=== PATIENT | female | born 1965 | race Caucasian/White ===

== ENCOUNTER 2020-03-12 10:53 | Day surgery (SDC) | payer OTHER ==
[2020-03-12] MEDS ORDERED: Depo-Medrol 40 MG/ML IM ONE (10:54)
[2020-03-12] MEDS ORDERED: LIDOCAINE HCL 2% 100 MG/5 ML IJ ONE (10:54)
[2020-03-12] MEDS ORDERED: DIPRIVAN 200 MG/20 ML IV ONE ×2 (12:54→13:12)
[2020-03-12] MEDS ORDERED: Ketamine HCl 50 MG/ML ONE ×2 (12:54→13:12)
[2020-03-12] MEDS ORDERED: Decadron 4 MG INJ ONE (13:15)
[2020-03-12] MEDS ORDERED: Zofran 4 MG/2 ML VIAL ONE (13:15)
--- NOTE | 2020-03-12 15:08 | XRAY ---
Indication: Left L4-S1 MBB. Intraoperative fluoroscopy was provided for 14 seconds. Single digital spot image submitted for interpretation demonstrates posterior needle tips projecting over the expected course of the left L4-S1 nerve root. Correlate with intraoperative findings/report.
--- NOTE | 2020-03-12 15:13 | XRAY ---
14 seconds fluoroscopy time in surgery for left L4-S1 MBB.
[2020-03-12] MEDS ORDERED: Lactated Ringers 1,000 ML IV ONE (15:30)
== END 2020-03-12 13:38 | disposition home or self-care (01) ==
LOC: SDC-PAIN 10:53
PROVIDERS: ATTEND Psychiatry & Neurology Pain Medicine
DX: M47.816 Spondylosis without myelopathy or radiculopathy, lumbar region (principal); I10 Essential (primary) hypertension; E78.5 Hyperlipidemia, unspecified; M79.7 Fibromyalgia; F41.8 Other specified anxiety disorders; Z79.899 Other long term (current) drug therapy
CPT/HCPCS: 64493; 64494; 72020; 77002; J1030; J1100; J2405; J2704

== ENCOUNTER 2020-04-02 10:02 | Day surgery (SDC) | payer OTHER ==
[~2020-04-02 10:02] MED LIST: DIPRIVAN 200 MG/20 ML IV ONE; Ketamine HCl 50 MG/ML ONE
[2020-04-02] MEDS ORDERED: Depo-Medrol 40 MG/ML IM ONE (10:03)
[2020-04-02] MEDS ORDERED: BUPIVACAINE 0.5% VIAL IJ ONE (10:03)
[2020-04-02] MEDS ORDERED: Lactated Ringers 1,000 ML IV ONE (13:53)
--- NOTE | 2020-04-03 14:55 | XRAY ---
18 seconds fluoroscopy time in surgery for bilateral L4-S1 MBB.
--- NOTE | 2020-04-05 22:44 | XRAY ---
Indication: Bilateral L4-S1 MBB. Intraoperative fluoroscopy was provided for 18 seconds. A single digital spot image submitted for interpretation demonstrates posterior spinal needle tips projected over the expected course of the left and right L4-S1 nerve roots. Correlate with intraoperative findings/report.
== END 2020-04-02 12:20 | disposition home or self-care (01) ==
LOC: SDC-PAIN 10:02
PROVIDERS: ATTEND Psychiatry & Neurology Pain Medicine
DX: M47.816 Spondylosis without myelopathy or radiculopathy, lumbar region (principal); M79.7 Fibromyalgia; E78.5 Hyperlipidemia, unspecified; F41.8 Other specified anxiety disorders; Z79.899 Other long term (current) drug therapy
CPT/HCPCS: 64493; 64494; 72020; 77002; J1030; J2704

== ENCOUNTER 2020-04-30 09:06 | Day surgery (SDC) | payer OTHER ==
[2020-04-30] MEDS ORDERED: Depo-Medrol 40 MG/ML IM ONE (09:07)
[2020-04-30] MEDS ORDERED: BUPIVACAINE 0.5% VIAL IJ ONE (09:07)
[2020-04-30] MEDS ORDERED: Xylocaine 1% Vial 30 ML PF IJ ONE (09:07)
--- NOTE | 2020-04-30 12:10 | XRAY ---
Indication: Left L4-S1 RFA. Intraoperative fluoroscopy was provided for 30 seconds. 3 digital spot images submitted for interpretation demonstrates posterior needle tips projecting over the expected left L4-S1 nerve roots. Correlate with intraoperative findings/report.
[2020-04-30] MEDS ORDERED: Lactated Ringers 1,000 ML IV ONE (13:48)
--- NOTE | 2020-04-30 16:55 | XRAY ---
30 seconds of fluoroscopy was used in surgery for a left L4-L5, L5-S1 RFA.
== END 2020-04-30 11:00 | disposition home or self-care (01) ==
LOC: SDC-PAIN 09:06
PROVIDERS: ATTEND Psychiatry & Neurology Pain Medicine
DX: M47.816 Spondylosis without myelopathy or radiculopathy, lumbar region (principal); I10 Essential (primary) hypertension; E78.5 Hyperlipidemia, unspecified; M79.7 Fibromyalgia; F41.8 Other specified anxiety disorders; Z79.899 Other long term (current) drug therapy
CPT/HCPCS: 64635; 72100; 77002; J1030; J2001; J2704

== ENCOUNTER 2020-05-14 10:27 | Day surgery (SDC) | payer OTHER ==
[2020-05-14] MEDS ORDERED: Xylocaine 1% Vial 30 ML PF IJ ONE (10:28)
[2020-05-14] MEDS ORDERED: BUPIVACAINE 0.5% VIAL IJ ONE (10:28)
[2020-05-14] MEDS ORDERED: Depo-Medrol 40 MG/ML IM ONE (10:28)
[2020-05-14] MEDS ORDERED: Ketamine HCl 50 MG/ML ONE ×2 (11:13→11:48)
[2020-05-14] MEDS ORDERED: DIPRIVAN 200 MG/20 ML IV ONE ×2 (11:13→11:48)
--- NOTE | 2020-05-14 14:02 | XRAY ---
Indication: Right L4-S1 RFA. Intraoperative fluoroscopy was provided for 27 seconds. 3 digital spot images submitted for interpretation demonstrates posterior needle tips projecting over the expected right L4-S1 nerve roots. Correlate with intraoperative findings/report.
--- NOTE | 2020-05-14 14:17 | XRAY ---
27 seconds fluoroscopy time in surgery for right L4-S1 RFA.
[2020-05-14] MEDS ORDERED: Lactated Ringers 1,000 ML IV ONE (16:47)
== END 2020-05-14 12:30 | disposition home or self-care (01) ==
LOC: SDC-PAIN 10:27
PROVIDERS: ATTEND Psychiatry & Neurology Pain Medicine
DX: M47.816 Spondylosis without myelopathy or radiculopathy, lumbar region (principal); E78.00 Pure hypercholesterolemia, unspecified; I10 Essential (primary) hypertension; M79.7 Fibromyalgia; Z79.899 Other long term (current) drug therapy
CPT/HCPCS: 64635; 64636; 72100; 77002; J1030; J2001; J2704

== ENCOUNTER 2020-07-31 11:10 | Emergency (ER) | payer BC, OTHER, SELFPAY ==
[2020-07-31 11:33] VITALS: O2SAT 98
[2020-07-31] MEDS ORDERED: Zofran 4 MG/2 ML VIAL IV ONE (11:34)
[2020-07-31] MEDS ORDERED: TORAdol 30 mg Injection IV ONE (11:34)
[2020-07-31] MEDS ORDERED: Sodium Chloride 0.9% 1000 ML 1,000 ML IV STA (11:34)
[2020-07-31] MEDS ORDERED: Zofran 4 MG/2 ML VIAL ONE (11:36)
[2020-07-31] MEDS ORDERED: Sodium Chloride 0.9% 1000 ML 1,000 ML ONE (11:36)
[2020-07-31] MEDS ORDERED: TORAdol 30 mg Injection ONE (11:36)
--- NOTE | 2020-07-31 11:38 | ERPHSYRPT ---
- History of Present Illness Time Seen by Provider: 07/31/20 11:35 Historian: patient Exam Limitations: no limitations Patient Subjective Stated Complaint: PT states "about 9 am this morning my back started to hurt on the left siide and it hurt when I went to the bathroom." Triage Nursing Assessment: Pt presented alert and oriented X 3, skin pwd. Pt ambulates with an upright stiff gait, able to speak in clear full sentences. pt in no apparent respiratory distress. Physician History: This is a 54-year-old obese white female with chronic back pain issues and sees a pain specialist (Dr. Jackson) for chronic pain. She also has a history of anxiety issues, depression and fibromyalgia. This morning, she had a sudden onset of left flank pain that radiated into the left groin. She has had history of ureteral calculi in the past. Symptoms are similar this morning. She has associated nausea but no vomiting. She has no chest pain. She denies shortness of breath. She has had no diarrhea. She has had no fevers or chills. Patient has not fallen and has not suffered any back trauma. Timing/Duration: today Activities at Onset: none Quality: sharpness, stabbing Abdominal Pain Onset Location: flank (Left) Pain Radiation: groin (Left) Severity of Pain-Max: moderate Severity of Pain-Current: moderate Modifying Factors: Improves With: nothing Associated Symptoms: nausea, No chest pain, No diarrhea, No fever/chills, No shortness of breath, No vomiting Previous symptoms: same symptoms as today Allergies/Adverse Reactions: No Known Drug Allergies Allergy (Verified 07/31/20 11:27) Home Medications: ARIPiprazole [Abilify Mycite] 2 mg PO DAILY 07/31/20 [History] Atorvastatin Calcium [Lipitor] 20 mg PO DAILY 07/31/20 [History] Baclofen 10 mg PO TID 07/31/20 [History] Fenofibrate 160 mg PO DAILY 07/31/20 [History] Gabapentin 600 mg PO QID 07/31/20 [History] Hydrocodone/Acetaminophen [Hydrocodone-Acetamin 7.5-325] 1 each PO TID PRN 07/31/20 [History] Lisinopril 20 mg [Zestril 20 MG] 20 mg PO DAILY 07/31/20 [History] Topiramate [Topiramate ER] 50 mg PO BID 07/31/20 [History] Hx Tetanus, Diphtheria Vaccination/Date Given: Yes Hx Influenza Vaccination/Date Given: Yes Hx Pneumococcal Vaccination/Date Given: No Immunizations Up to Date: Yes Travel Risk - International Travel Have you traveled outside of the country in past 3 weeks: No (N) If Yes, where;: N - Coronavirus Screening Are you exhibiting any of the following symptoms?: No Close contact with a COVID-19 positive Pt in past 14-21 Days: No - Review of Systems Constitutional: No Symptoms Eyes: No Symptoms Ears, Nose, & Throat: No Symptoms Respiratory: No Symptoms Cardiac: No Symptoms Abdominal/Gastrointestinal: Nausea Genitourinary Symptoms: Dysuria, Flank Pain (Left) Musculoskeletal: No Symptoms Skin: No Symptoms Neurological: No Symptoms Psychological: No Symptoms Endocrine: No Symptoms Hematologic/Lymphatic: No Symptoms Immunological/Allergic: No Symptoms All Other Systems: Reviewed and Negative - Past Medical History Pertinent Past Medical History: Yes Neurological History: Migraines ENT History: No Pertinent History Cardiac History: High Cholesterol, Hypertension Respiratory History: No Pertinent History Endocrine Medical History: No Pertinent History Musculoskeletal History: Fibromyalgia GI Medical History: No Pertinent History History: No Pertinent History Psycho-Social History: Anxiety, Depression Female Reproductive Disorders: No Pertinent History - Past Surgical History Past Surgical History: Yes Other Surgical History: hysterectomy. back. bilat knee - Social History Smoking Status: Never smoker Exposure to second hand smoke: No Drug Use: none Patient Lives Alone: No - Female History Hx Last Menstrual Period: 1995 Hx Now: No - Nursing Vital Signs Nursing Vital Signs: Initial Vital Signs Temperature 99 F 07/31/20 11:14 Pulse Rate 118 H 07/31/20 11:14 Respiratory Rate 22 07/31/20 11:14 Blood Pressure 187/108 07/31/20 11:14 O2 Sat by Pulse Oximetry 98 07/31/20 11:14 Pain Scale Pain Intensity 6 - Physical Exam General Appearance: no apparent distress, alert, anxiety, obese Eye Exam: PERRL/EOMI, eyes nml inspection Ears, Nose, Throat Exam: normal ENT inspection, moist mucous membranes Neck Exam: normal inspection, non-tender, supple, full range of motion Respiratory Exam: normal breath sounds, lungs clear, airway intact, No chest tenderness, No respiratory distress Cardiovascular Exam: tachycardia Gastrointestinal/Abdomen Exam: soft, normal bowel sounds, No tenderness, No guarding Pelvic Exam: not done Rectal Exam: not done Back Exam: normal inspection, normal range of motion, CVA tenderness (Left), No vertebral tenderness Extremity Exam: normal inspection, normal range of motion, pelvis stable Neurologic Exam: alert, oriented x 3, cooperative, 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, normal mood/affect, nml cerebellar function, nml station & gait, sensation nml Skin Exam: normal color, warm, dry Lymphatic Exam: No adenopathy SpO2 Interpretation: normal SpO2: 98 O2 Delivery: Room Air - Course Nursing assessment & vital signs reviewed: Yes Ordered Tests: Active Orders 24 hr Category Date Time Status IV Insertion STAT Care 07/31/20 11:34 Active ABDOMEN AND PELVIS W/0 CONTRAS [CT] Stat Exams 07/31/20 11:33 Completed CBC W DIFF Stat Lab 07/31/20 11:30 Received CMP Stat Lab 07/31/20 11:30 Received CULTURE,URINE Stat Lab 07/31/20 12:00 Received PROTIME WITH INR Stat Lab 07/31/20 11:30 Received UA W/RFX UR CULTURE Stat Lab 07/31/20 12:00 Completed Medication Summary Generic Name Dose Route Start Last Admin Trade Name Freq PRN Reason Stop Dose Admin Ceftriaxone Sodium/Dextrose 1 g in 50 mls @ 100 mls/hr 07/31/20 13:14 07/31/20 13:27 Rocephin 1 Gm-D5w 50 Ml Bag IV 07/31/20 13:43 100 mls/hr STAT STA 100 mls/hr Administration Discontinued Medications Generic Name Dose Route Start Last Admin Trade Name Freq PRN Reason Stop Dose Admin Hydromorphone HCl 1 mg 07/31/20 13:34 Hydromorphone 1 Mg/Ml Injection IV 07/31/20 13:35 STAT ONE Hydromorphone HCl 1 mg 07/31/20 13:34 Hydromorphone 1 Mg/Ml Injection IV 07/31/20 13:35 STAT ONE Sodium Chloride 1,000 mls @ 999 mls/hr 07/31/20 11:34 07/31/20 12:56 Sodium Chloride 0.9% 1000 Ml IV 07/31/20 12:34 Infused .Q1H1M STA Infusion Sodium Chloride Confirm 07/31/20 11:36 Sodium Chloride 0.9% 1000 Ml Administered 07/31/20 11:37 Dose 1,000 mls @ ud .ROUTE .STK-MED ONE Ceftriaxone Sodium/Dextrose Confirm 07/31/20 13:27 Rocephin 1 Gm-D5w 50 Ml Bag Administered 07/31/20 13:28 Dose 1 g in 50 mls @ ud IV .STK-MED ONE Ketorolac Tromethamine 30 mg 07/31/20 11:34 07/31/20 11:37 Toradol 30 Mg Injection IV 07/31/20 11:35 30 mg STAT ONE Administration Ketorolac Tromethamine Confirm 07/31/20 11:36 Toradol 30 Mg Injection Administered 07/31/20 11:37 Dose 30 mg .ROUTE .STK-MED ONE Ondansetron HCl 4 mg 07/31/20 11:34 07/31/20 11:37 Zofran 4 Mg/2 Ml Vial IV 07/31/20 11:35 4 mg STAT ONE Administration Ondansetron HCl Confirm 07/31/20 11:36 Zofran 4 Mg/2 Ml Vial Administered 07/31/20 11:37 Dose 4 mg .ROUTE .STK-MED ONE Lab/Rad Data: Laboratory Results 07/31/20 Range/Units 12:00 Urine Color YELLOW (YELLOW) Urine Appearance CLOUDY (CLEAR) Urine pH 5.0 (5-6) Ur Specific [place] 1.021 (1.005-1.025) Urine Protein 30 (Negative) Urine Ketones NEGATIVE (NEGATIVE) Urine Blood LARGE (0-5) Christopher/ul Urine Nitrite NEGATIVE (NEGATIVE) Urine Bilirubin NEGATIVE (NEGATIVE) Urine Urobilinogen NEGATIVE (0-1) mg/dL Ur Leukocyte Esterase TRACE (NEGATIVE) Urine RBC (Auto) >101 (0-2) /HPF U Epithel Cells (Auto) FEW (FEW) /HPF Urine Bacteria (Auto) MODERATE (NEGATIVE) /HPF Urine Mucus (Auto) SLIGHT (NEGATIVE) /HPF Urine Culture Reflexed YES (NO) Urine Glucose NEGATIVE (NEGATIVE) mg/dL - Progress Progress: improved, pain not gone completely, re-examined Progress Note: 07/31/20 12:45 Clinically, the patient states that her pain has improved but has not completely resolved. CAT scan of the abdomen pelvis without contrast shows a 6 to 7 mm left UPJ calculus producing partial obstruction. There is urinary bladder calculus present as well as bilateral renal microcalculi present. There is mild hydronephrosis and no perinephric fluid present. 07/31/20 13:36 At [address] Villalobos who is a urologist at [facility] in [facility]. He offered to accept the patient to [facility] through the emergency department if the patient wants surgical intervention today. We s poke with the patient and she does want to be transferred for intervention. At [address] Oh who is the emergency department physician today at [facility]. I reviewed the patient history, condition and CAT scan of the abdomen and pelvis results with him. He accepts the patient for transfer. Counseled pt/family regarding: lab results, diagnosis, need for follow-up, rad results - Departure Departure Disposition: Transfer Clinical Impression: Left ureteral calculus Condition: Stable Critical Care Time: No Referrals: MARCIN VALERA MD [Primary Care Provider] -
--- NOTE | 2020-07-31 12:11 | XRAY ---
Indication: Left flank pain. History of stones. Multiple contiguous axial images obtained through the abdomen and pelvis without contrast using renal stone protocol. Comparison: None Lung bases demonstrates bilateral dependent atelectasis and tiny left lower lobe calcified granuloma. Heart is borderline enlarged. Small hiatal hernia. There is a 6-7 mm left UPJ calculus producing partial obstruction with mild hydronephrosis but no perinephric fluid. Additional multiple bilateral renal micro-calculi. Urinary bladder demonstrates 3-4 mm calculus posteriorly towards the left. Noncontrasted stomach and bowel loops appear nonobstructed. Normal appendix. Minimal diffuse scattered colonic diverticulosis. Hysterectomy reported. No free fluid/air. Mild diffuse fatty hepatomegaly measuring 22 cm. Splenomegaly measuring 12.6 cm. Remaining liver, gallbladder, pancreas, spleen, adrenal glands, kidneys, ureters, bladder, and aorta appear unremarkable for noncontrast exam. Osseous structures intact with minimal spinal degenerative spondylosis. Impression: 1. 6-7 mm left UPJ calculus producing partial obstruction. Additional urinary bladder micro-calculus and bilateral renal micro-calculi. 2. Incidental small hiatal hernia, colonic diverticulosis, fatty hepatomegaly, and splenomegaly.
[2020-07-31 12:22] LABS: Appearance CLOUDY (CLEAR); Bacteria MODERATE /HPF (NEGATIVE); Bilirubin NEGATIVE (NEGATIVE); Blood LARGE Ery/ul (0-5); Epithelial Cells FEW /HPF (FEW); Glucose NEGATIVE (NEGATIVE); Ketones NEGATIVE (NEGATIVE); Leukocyte Esterase TRACE (NEGATIVE); Mucus SLIGHT /HPF (NEGATIVE); Nitrite NEGATIVE (NEGATIVE); Protein,Urine Dip 30 (Negative); Specific Gravity 1.021 (1.005-1.025); Urobilinogen NEGATIVE mg/dL (0-1)
[2020-07-31 12:23] LABS: RBC >101 /HPF (0-2)
[2020-07-31] MEDS ORDERED: ROCEPHIN 1 Gm-D5w 50 ml Bag** 1 G/50 ML IVPB IV STA (13:14)
[2020-07-31 13:26] VITALS: BP 161/85; PULSE 90
[2020-07-31] MEDS ORDERED: ROCEPHIN 1 Gm-D5w 50 ml Bag** 1 G/50 ML IVPB IV ONE (13:27)
[2020-07-31 13:30] LABS: Absolute Neutrophil Ct (ANC) 3.94 (1.4-6.9); BASOPHIL % 0.6 % (0.0-0.4); Basophil (Absolute #) 0.04 (0-0.4); Eosinophil (Absolute #) 0.25 (0-0.5); Hematocrit 40.7 % (35-47); INR 1.03 (0.8-3.0); Lymphocyte (Absolute #) 1.58 (1.0-4.6); Lymphocytes % 25.2 % (24.0-44.0); Mean Cell Volume 93.3 fl (78-100); Mean Corpuscular Hemoglobin 29.8 pg (26-32); Mean Corpuscular Hgb Concent. 31.9 g/dl (32-36); Monocyte (Absolute #) 0.46 (0.0-1.3); Monocytes % 7.3 % (0.0-12.0); Neutrophil % 62.9 % (36.0-66.0); PROTIME 11.6 SECONDS (9.95-12.35); Platelet Count 278 K/mm3 (150-450); Red Blood Count 4.36 M/mm3 (4.1-5.4); Red Cell Distribution Width 13.3 % (11.5-14.0); White Blood Count 6.3 K/mm3 (4.0-10.5)
[2020-07-31] MEDS ORDERED: Hydromorphone 1 mg/ml Injection IV ONE ×2 (13:34)
[2020-07-31] MEDS ORDERED: Hydromorphone 1 mg/ml Injection ONE (13:36)
[2020-07-31 13:42] LABS: ALBUMIN 4.7 g/dL (3.5-5.0); ANION GAP 11.9 MEQ/L (5-15); BILIRUBIN,TOTAL 0.4 mg/dL (0.2-1.3); Calcium 10.4 mg/dL (8.4-10.2); Creatinine 1 1.16 mg/dL (0.52-1.04); EST GLOMERULAR FILTRATION RATE 52.1 ML/MIN; Potassium 3.6 mmol/L (3.5-5.1); Total Protein 8.2 g/dL (6.3-8.2)
== END 2020-07-31 14:05 | disposition short-term general hospital (02) ==
LOC: ED 11:10
DX: N21.1 Calculus in urethra (principal); R10.32 Left lower quadrant pain; R30.0 Dysuria; R00.0 Tachycardia, unspecified; E78.5 Hyperlipidemia, unspecified; I10 Essential (primary) hypertension; R11.0 Nausea; E66.9 Obesity, unspecified; Z79.899 Other long term (current) drug therapy
CPT/HCPCS: 36000; 36415; 74176; 80053; 81001; 85025; 85610; 87086; 96360; 96365; 96374; 96375; 99285; J0696; J1170; J1885; J2405

== ENCOUNTER 2020-11-05 13:02 | Day surgery (SDC) | payer BC ==
[2020-11-05] MEDS ORDERED: Depo-Medrol 40 MG/ML IM ONE (13:03)
[2020-11-05] MEDS ORDERED: Sodium Chloride 0.9(Preservative Free) 10 ML IJ ONE (13:03)
[2020-11-05] MEDS ORDERED: DIPRIVAN 200 MG/20 ML IV ONE (14:40)
--- NOTE | 2020-11-05 16:12 | XRAY ---
38 seconds fluoroscopy time in surgery for left L4-S1 transforaminal MARICARMEN.
[2020-11-05] MEDS ORDERED: Lactated Ringers 1,000 ML IV ONE (16:41)
--- NOTE | 2020-11-06 22:49 | XRAY ---
Indication: Left L4-S1 transforaminal MARICARMEN. Intraoperative fluoroscopy was provided for 38 seconds. 4 digital spot images submitted for interpretation demonstrate posterior needle tips projected over the expected course of the left L4 and L5 nerve roots. A small amount of contrast has been injected for needle tip placement. Correlate with intraoperative findings/report.
== END 2020-11-05 15:15 | disposition home or self-care (01) ==
LOC: SDC-PAIN 13:02
PROVIDERS: ATTEND Psychiatry & Neurology Pain Medicine
DX: M54.16 Radiculopathy, lumbar region (principal); I10 Essential (primary) hypertension; M79.7 Fibromyalgia; E78.5 Hyperlipidemia, unspecified; F41.8 Other specified anxiety disorders; Z79.899 Other long term (current) drug therapy
CPT/HCPCS: 64483; 64484; 72100; 77003; J1030; J2704; Q9966

== ENCOUNTER 2021-01-14 10:17 | Day surgery (SDC) | payer BC ==
[2021-01-14] MEDS ORDERED: Depo-Medrol 40 MG/ML IM ONE (10:18)
[2021-01-14] MEDS ORDERED: BUPIVACAINE 0.5% VIAL IJ ONE (10:18)
[2021-01-14] MEDS ORDERED: Xylocaine 1% Vial 30 ML PF IJ ONE (10:18)
[2021-01-14] MEDS ORDERED: DIPRIVAN 200 MG/20 ML IV ONE (11:56)
--- NOTE | 2021-01-14 13:31 | XRAY ---
Indication: Left L4-S1 RFA. Intraoperative fluoroscopy provided for 19 seconds. 3 digital spot image submitted for interpretation demonstrates posterior needle tips projecting over the expected left L4-S1 nerve roots. Correlate with intraoperative findings/report.
--- NOTE | 2021-01-14 13:33 | XRAY ---
19 seconds fluoroscopy time in surgery for left L4-S1 RFA.
[2021-01-14] MEDS ORDERED: Lactated Ringers 1,000 ML IV ONE (15:32)
== END 2021-01-14 12:34 | disposition home or self-care (01) ==
LOC: SDC-PAIN 10:17
PROVIDERS: ATTEND Psychiatry & Neurology Pain Medicine
DX: M47.817 Spondylosis without myelopathy or radiculopathy, lumbosacral region (principal); I10 Essential (primary) hypertension; E78.5 Hyperlipidemia, unspecified; M79.7 Fibromyalgia; Z79.899 Other long term (current) drug therapy
CPT/HCPCS: 64635; 64636; 72100; 77002; J1030; J2001; J2704

== ENCOUNTER 2021-01-21 11:31 | Inpatient (IN) | payer BC ==
[2021-01-21] MEDS ORDERED: Sodium Chloride 0.9% 1000 ML 1,000 ML IV STA (12:42)
[2021-01-21] MEDS ORDERED: Zofran 4 MG/2 ML VIAL IV ONE (12:42)
[2021-01-21] MEDS ORDERED: Zofran 4 MG/2 ML VIAL ONE (12:50)
[2021-01-21] MEDS ORDERED: Sodium Chloride 0.9% 1000 ML 1,000 ML ONE ×2 (12:50→20:43)
[2021-01-21 12:53] LABS: ALBUMIN 5.4 g/dL (3.5-5.0); ANION GAP 24.9 MEQ/L (5-15); BILIRUBIN,TOTAL 0.6 mg/dL (0.2-1.3); Calcium 10.5 mg/dL (8.4-10.2); Creatinine 1 3.44 mg/dL (0.52-1.04); EST GLOMERULAR FILTRATION RATE 14.8 ML/MIN; Potassium 3.2 mmol/L (3.5-5.1); Total Protein 8.6 g/dL (6.3-8.2)
[2021-01-21 12:54] LABS: Appearance CLOUDY (CLEAR); Bilirubin NEGATIVE (NEGATIVE); Blood MODERATE Ery/ul (0-5); Epithelial Cells MANY /HPF (FEW); Glucose NEGATIVE (NEGATIVE); Ketones NEGATIVE (NEGATIVE); Leukocyte Esterase MODERATE (NEGATIVE); Mucus SLIGHT /HPF (NEGATIVE); Nitrite NEGATIVE (NEGATIVE); Protein,Urine Dip 100 (Negative); Specific Gravity 1.024 (1.005-1.025); Urobilinogen NEGATIVE mg/dL (0-1)
[2021-01-21 12:56] LABS: Bacteria MANY /HPF (NEGATIVE)
[2021-01-21 13:14] LABS: Absolute Neutrophil Ct (ANC) 12.15 (1.4-6.9); BASOPHIL % 0.1 % (0.0-0.4); Basophil (Absolute #) 0.01 (0-0.4); Eosinophil % 0.9 % (0.00-5.0); Eosinophil (Absolute #) 0.13 (0-0.5); Hematocrit 47.7 % (35-47); Hemoglobin 15.9 gm/dl (12.0-16.0); Lymphocyte (Absolute #) 1.28 (1.0-4.6); Lymphocytes % 8.9 % (24.0-44.0); Mean Cell Volume 92.1 fl (78-100); Mean Corpuscular Hemoglobin 30.7 pg (26-32); Mean Corpuscular Hgb Concent. 33.3 g/dl (32-36); Mean Platelet Volume 10.2 fl (7.5-11.0); Monocyte (Absolute #) 0.84 (0.0-1.3); Monocytes % 5.8 % (0.0-12.0); Neutrophil % 84.3 % (36.0-66.0); Platelet Count 356 K/mm3 (150-450); Red Blood Count 5.18 M/mm3 (4.1-5.4); Red Cell Distribution Width 14.5 % (11.5-14.0); White Blood Count 14.4 K/mm3 (4.0-10.5)
--- NOTE | 2021-01-21 13:21 | ERPHSYRPT ---
- History of Present Illness Time Seen by Provider: 01/21/21 12:06 Historian: patient Exam Limitations: no limitations Patient Subjective Stated Complaint: C/O N/V/D off and on since Tuesday. Has had 6 doses of immodium since Tuesday with the last dose taken today at 0530. States pain is in entire abdomen and is a "stabbing" pain. C/O of feeling "weak" and "muscle aches." C/O SOB with exertion. Last loose stool at 1100 today and last vomiting at 0630 today. Triage Nursing Assessment: Resident noted to be SOB temporarily with exertion (changing into a gown and trasferring from W/C to bed). Lungs clear upon ascultation. Pain to abdomen increases when palpated. Bowel sounds are present to all 4 quads. Denies pain anywhere other than abdomen. Physician History: 48 years old morbidly obese female with history of hypertension, fibromyalgia, hyperlipidemia presented in the ER with chief complaint of generalized abdominal pain more on the left side, moderate to severe intensity, sharp stabbing in nature for the last 4 days with associated multiple episodes of nonprojectile, nonbilious vomiting without any hematemesis and multiple loose stools. She has been taking [id number] Imodium with no significant relief. She was also prescribed antiemetic by primary care but does not seem working. Patient is not able to hold anything down. She is feeling fatigued tired, drained with lack of energy to do any activities. Denies any fever or chills. Patient does report getting short of breath with exertion but denies any cough or sick contact. Timing/Duration: day(s) (4), constant, gradual onset, worse Activities at Onset: rest Quality: sharpness, stabbing Abdominal Pain Onset Location: LLQ, flank Pain Radiation: no radiation Severity of Pain-Max: moderate Severity of Pain-Current: moderate Modifying Factors: Worsens With: movement, vomiting, position Associated Symptoms: nausea, shortness of breath, vomiting, weakness, No chest pain, No fever/chills Previous symptoms: no prior history Allergies/Adverse Reactions: No Known Drug Allergies Allergy (Verified 01/21/21 12:01) Home Medications: ARIPiprazole [Abilify Mycite] 5 mg PO HS 07/31/20 [History] Atorvastatin Calcium [Lipitor] 20 mg PO HS 07/31/20 [History] Baclofen 10 mg PO TID 07/31/20 [History] Fenofibrate 160 mg PO HS 07/31/20 [History] Gabapentin 600 mg PO QID 07/31/20 [History] Hydrocodone/Acetaminophen [Hydrocodone-Acetamin 7.5-325] 1 tab PO TID PRN 07/31/20 [History] Lisinopril 20 mg [Zestril 20 MG] 20 mg PO HS 07/31/20 [History] Topiramate [Topiramate ER] 50 mg PO BID 07/31/20 [History] Chlorthalidone 1 tab PO DAILY 01/21/21 [History] Milnacipran HCl [Savella] 1 tab PO BID 01/21/21 [History] Hx Tetanus, Diphtheria Vaccination/Date Given: Yes Hx Influenza Vaccination/Date Given: No Hx Pneumococcal Vaccination/Date Given: No Immunizations Up to Date: Yes Travel Risk - International Travel Have you traveled outside of the country in past 3 weeks: No - Coronavirus Screening Are you exhibiting any of the following symptoms?: Yes Symptoms: Vomiting/Diarrhea, Headaches/Body Aches/Fatigue Close contact with a COVID-19 positive Pt in past 14-21 Days: No - Vaccine Status Have you recieved a Covid-19 vaccination: Yes Investment Analyst: [email or web address] - Review of Systems Constitutional: Fatigue, Weakness Eyes: No Symptoms Ears, Nose, & Throat: No Symptoms Respiratory: Dyspnea on Exertion (AYOUB) Cardiac: No Symptoms Abdominal/Gastrointestinal: Abdominal Pain, Nausea, Vomiting, Diarrhea Genitourinary Symptoms: No Symptoms Musculoskeletal: Myalgias Skin: No Symptoms Neurological: No Symptoms Psychological: No Symptoms Endocrine: No Symptoms Hematologic/Lymphatic: No Symptoms Immunological/Allergic: No Symptoms - Past Medical History Pertinent Past Medical History: Yes Neurological History: Migraines ENT History: No Pertinent History Cardiac History: High Cholesterol, Hypertension Respiratory History: No Pertinent History Endocrine Medical History: No Pertinent History Musculoskeletal History: Fibromyalgia GI Medical History: No Pertinent History History: No Pertinent History Psycho-Social History: Anxiety, Depression Female Reproductive Disorders: No Pertinent History - Past Surgical History Past Surgical History: Yes Other Surgical History: hysterectomy. back. bilat knee - Social History Smoking Status: Never smoker Exposure to second hand smoke: No Drug Use: none Patient Lives Alone: No - Female History Hx Now: No - Nursing Vital Signs Nursing Vital Signs: Initial Vital Signs Temperature 98.6 F 01/21/21 11:36 Pulse Rate 110 H 01/21/21 11:36 Respiratory Rate 20 01/21/21 11:36 Blood Pressure 97/62 01/21/21 11:36 O2 Sat by Pulse Oximetry 97 01/21/21 11:36 Pain Scale Pain Intensity 4 - Physical Exam General Appearance: no apparent distress, alert, anxiety Eye Exam: PERRL/EOMI, eyes nml inspection Ears, Nose, Throat Exam: normal ENT inspection, pharynx normal Neck Exam: normal inspection, non-tender, supple, full range of motion Respiratory Exam: normal breath sounds, lungs clear Cardiovascular Exam: normal heart sounds, tachycardia Gastrointestinal/Abdomen Exam: soft, normal bowel sounds, tenderness (Left flank/left lower quadrant) Back Exam: normal inspection, normal range of motion Extremity Exam: normal inspection, normal range of motion Neurologic Exam: alert, oriented x 3, cooperative Skin Exam: normal color SpO2 Interpretation: normal SpO2: 97 O2 Delivery: Room Air Ordered Tests: Medication Summary Discontinued Medications Generic Name Dose Route Start Last Admin Trade Name Freq PRN Reason Stop Dose Admin Albuterol/Ipratropium 3 ml 01/21/21 18:49 Duoneb 0.5-3 Mg/3 Ml Neb IH 02/20/21 18:48 Q4HPRN PRN SHORTNESS OF BREATH/WHEEZING Dexamethasone Sodium Phosphate 4 mg 01/22/21 10:00 01/24/21 09:51 Decadron 4 Mg Inj IV 02/21/21 09:59 4 mg DAILY MYRIAM Administration Enoxaparin Sodium 30 mg 01/22/21 10:00 01/22/21 20:21 Enoxaparin Sodium SQ 02/21/21 09:59 Not Given DAILY MYRIAM Enoxaparin Sodium 40 mg 01/22/21 10:00 01/24/21 09:53 Enoxaparin Sodium SQ 02/21/21 09:59 40 mg DAILY MYRIAM Administration Gabapentin 600 mg 01/21/21 22:00 01/24/21 09:52 Neurontin 300 Mg PO 02/20/21 21:59 600 mg QID MYRIAM Administration Sodium Chloride 1,000 mls @ 999 mls/hr 01/21/21 12:42 01/21/21 14:07 Sodium Chloride 0.9% 1000 Ml IV 01/21/21 13:42 Infused .Q1H1M STA Infusion Sodium Chloride Confirm 01/21/21 12:50 Sodium Chloride 0.9% 1000 Ml Administered 01/21/21 12:51 Dose 1,000 mls @ ud .ROUTE .STK-MED ONE Ceftriaxone Sodium/Dextrose 1 g in 50 mls @ 100 mls/hr 01/21/21 15:07 01/21/21 16:47 Rocephin 1 Gm-D5w 50 Ml Bag IV 01/21/21 15:36 Infused STAT STA Infusion Ceftriaxone Sodium/Dextrose Confirm 01/21/21 15:42 Rocephin 1 Gm-D5w 50 Ml Bag Administered 01/21/21 15:43 Dose 1 g in 50 mls @ ud IV .STK-MED ONE Potassium Chloride/Sodium Chloride 1,000 mls @ 125 mls/hr 01/21/21 18:49 01/22/21 04:36 Sodium Chloride 0.9% W/ 40 Meq Kcl 1000ml IV 02/20/21 18:48 125 mls/hr .Q8H MYRIAM Administration Ceftriaxone Sodium/Dextrose 1 g in 50 mls @ 100 mls/hr 01/22/21 10:00 01/24/21 09:51 Rocephin 1 Gm-D5w 50 Ml Bag IV 01/26/21 09:59 100 mls/hr Q24H10 MYRIAM Administration Sodium Chloride Confirm 01/21/21 20:43 Sodium Chloride 0.9% 1000 Ml Administered 01/21/21 20:44 Dose 1,000 mls @ ud .ROUTE .STK-MED ONE Sodium Chloride Confirm 01/22/21 04:35 Sodium Chloride 0.9% 1000 Ml Administered 01/22/21 04:36 Dose 1,000 mls @ ud .ROUTE .STK-MED ONE Remdesivir 200 mg/ Sodium 250 mls @ 125 mls/hr 01/22/21 11:00 01/22/21 10:36 Chloride IV 01/22/21 12:59 125 mls/hr ONCE ONE Administration Remdesivir 100 mg/ Sodium 100 mls @ 100 mls/hr 01/23/21 10:00 01/24/21 09:51 Chloride IV 01/26/21 10:59 100 mls/hr Q24H MYRIAM Administration Potassium Chloride/Sodium Chloride 1,000 mls @ 75 mls/hr 01/22/21 10:30 01/24/21 00:13 Sodium Chloride 0.9% W/ 40 Meq Kcl 1000ml IV 02/21/21 10:29 200 mls/hr .[id number] MYRIAM Administration Potassium Chloride/Sodium Chloride 1,000 mls @ 100 mls/hr 01/22/21 10:30 Sodium Chloride 0.9% W/ 40 Meq Kcl 1000ml IV 02/21/21 10:29 .Q10H MYRIAM Potassium Chloride/Sodium Chloride 500 mls @ 500 mls/hr 01/22/21 09:20 01/22/21 20:23 Sodium Chloride 0.9% W/ 40 Meq Kcl 1000ml IV 01/22/21 10:20 Not Given .Q1H MYRIAM Lisinopril 20 mg 01/21/21 22:00 01/21/21 20:56 Zestril 20 Mg PO 02/20/21 21:59 20 mg DAILY MYRIAM Administration Lisinopril 20 mg 01/22/21 22:00 01/23/21 21:02 Zestril 20 Mg PO 02/20/21 21:59 20 mg HS MYRIAM Administration Miscellaneous Information 1 each 01/22/21 09:30 Medication Intervention PO 02/21/21 09:29 .RN TO CHECK MYRIAM Morphine Sulfate 4 mg 01/21/21 15:29 01/21/21 15:45 Morphine Sulfate 4 Mg Inj IV 01/21/21 15:30 4 mg STAT ONE Administration Morphine Sulfate Confirm 01/21/21 15:42 Morphine Sulfate 4 Mg Inj Administered 01/21/21 15:43 Dose 4 mg .ROUTE .STK-MED ONE Morphine Sulfate 2 mg 01/21/21 18:49 01/23/21 08:29 Morphine Sulfate 2 Mg Inj IV 01/26/21 18:48 2 mg Q4H PRN PRN Administration PAIN Ondansetron HCl 4 mg 01/21/21 12:42 01/21/21 12:54 Zofran 4 Mg/2 Ml Vial IV 01/21/21 12:43 4 mg STAT ONE Administration Ondansetron HCl Confirm 01/21/21 12:50 Zofran 4 Mg/2 Ml Vial Administered 01/21/21 12:51 Dose 4 mg .ROUTE .STK-MED ONE Ondansetron HCl 4 mg 01/21/21 18:49 01/23/21 04:20 Zofran 4 Mg/2 Ml Vial IV 02/20/21 18:48 4 mg Q6H PRN PRN Administration NAUSEA/VOMITING Pantoprazole Sodium 40 mg 01/22/21 10:00 01/24/21 09:52 Protonix 40 Mg Iv IV 02/21/21 09:59 40 mg Q24H10 MYRIAM Administration Topiramate 50 mg 01/21/21 22:00 01/24/21 09:54 Topiramate PO 02/20/21 21:59 50 mg BID MYRIAM Administration Lab/Rad Data: Laboratory Result Diagrams 01/21/21 12:32 01/21/21 12:32 Laboratory Results 01/21/21 01/21/21 01/21/21 Range/Units 16:02 14:58 12:42 WBC (4.0-10.5) K/mm3 RBC (4.1-5.4) M/mm3 Hgb (12.0-16.0) gm/dl Hct (35-47) % MCV (78-100) fl MCH (26-32) pg MCHC (32-36) g/dl RDW (11.5-14.0) % Plt Count (150-450) K/mm3 MPV (7.5-11.0) fl Gran % (36.0-66.0) % Eos # (Auto) (0-0.5) Absolute Lymphs (auto) (1.0-4.6) Absolute Monos (auto) (0.0-1.3) Lymphocytes % (24.0-44.0) % Monocytes % (0.0-12.0) % Eosinophils % (0.00-5.0) % Basophils % (0.0-0.4) % Absolute Granulocytes (1.4-6.9) Basophils # (0-0.4) Sodium (137-145) mmol/L Potassium (3.5-5.1) mmol/L Chloride (98-107) mmol/L Carbon Dioxide (22-30) mmol/L Anion Gap (5-15) MEQ/L BUN (7-17) mg/dL Creatinine (0.52-1.04) mg/dL Estimated GFR ML/MIN Glucose (74-106) mg/dL Lactic Acid 1.8 3.8 H (0.4-2.0) Calcium (8.4-10.2) mg/dL Total Bilirubin (0.2-1.3) mg/dL AST (14-36) U/L ALT (0-35) U/L Alkaline Phosphatase (38-126) U/L Serum Total Protein (6.3-8.2) g/dL Albumin (3.5-5.0) g/dL Lipase (23-300) U/L Urine Color (YELLOW) Urine Appearance (CLEAR) Urine pH (5-6) Ur Specific [place] (1.005-1.025) Urine Protein (Negative) Urine Ketones (NEGATIVE) Urine Blood (0-5) Christopher/ul Urine Nitrite (NEGATIVE) Urine Bilirubin (NEGATIVE) Urine Urobilinogen (0-1) mg/dL Ur Leukocyte Esterase (NEGATIVE) Urine WBC (Auto) (0-5) /HPF Urine RBC (Auto) (0-2) /HPF U Hyaline Cast (Auto) (0-2) /LPF U Epithel Cells (Auto) (FEW) /HPF Urine Bacteria (Auto) (NEGATIVE) /HPF Granular Casts (Auto) (NEGATIVE) /LPF Urine Mucus (Auto) (NEGATIVE) /HPF Urine Culture Reflexed (NO) Urine Glucose (NEGATIVE) mg/dL SARS-CoV-2 (PCR) POSITIVE A (NEGATIVE) 01/21/21 01/21/21 01/21/21 Range/Units 12:42 12:32 12:32 WBC 14.4 H (4.0-10.5) K/mm3 RBC 5.18 (4.1-5.4) M/mm3 Hgb 15.9 (12.0-16.0) gm/dl Hct 47.7 H (35-47) % MCV 92.1 (78-100) fl MCH 30.7 (26-32) pg MCHC 33.3 (32-36) g/dl RDW 14.5 H (11.5-14.0) % Plt Count 356 (150-450) K/mm3 MPV 10.2 (7.5-11.0) fl Gran % 84.3 H (36.0-66.0) % Eos # (Auto) 0.13 (0-0.5) Absolute Lymphs (auto) 1.28 (1.0-4.6) Absolute Monos (auto) 0.84 (0.0-1.3) Lymphocytes % 8.9 L (24.0-44.0) % Monocytes % 5.8 (0.0-12.0) % Eosinophils % 0.9 (0.00-5.0) % Basophils % 0.1 (0.0-0.4) % Absolute Granulocytes 12.15 H (1.4-6.9) Basophils # 0.01 (0-0.4) Sodium 141 (137-145) mmol/L Potassium 3.2 L (3.5-5.1) mmol/L Chloride 99 (98-107) mmol/L Carbon Dioxide 20 L (22-30) mmol/L Anion Gap 24.9 H (5-15) MEQ/L BUN 49 H (7-17) mg/dL Creatinine 3.44 H (0.52-1.04) mg/dL Estimated GFR 14.8 ML/MIN Glucose 156 H (74-106) mg/dL Lactic Acid (0.4-2.0) Calcium 10.5 H (8.4-10.2) mg/dL Total Bilirubin 0.60 (0.2-1.3) mg/dL AST 25 (14-36) U/L ALT 25 (0-35) U/L Alkaline Phosphatase 64 (38-126) U/L Serum Total Protein 8.6 H (6.3-8.2) g/dL Albumin 5.4 H (3.5-5.0) g/dL Lipase 298 (23-300) U/L Urine Color [place] (YELLOW) Urine Appearance CLOUDY (CLEAR) Urine pH 5.0 (5-6) Ur Specific [place] 1.024 (1.005-1.025) Urine Protein 100 (Negative) Urine Ketones NEGATIVE (NEGATIVE) Urine Blood MODERATE (0-5) Christopher/ul Urine Nitrite NEGATIVE (NEGATIVE) Urine Bilirubin NEGATIVE (NEGATIVE) Urine Urobilinogen NEGATIVE (0-1) mg/dL Ur Leukocyte Esterase MODERATE (NEGATIVE) Urine WBC (Auto) 16-25 (0-5) /HPF Urine RBC (Auto) 6-10 (0-2) /HPF U Hyaline Cast (Auto) 6-10 (0-2) /LPF U Epithel Cells (Auto) MANY (FEW) /HPF Urine Bacteria (Auto) MANY (NEGATIVE) /HPF Granular Casts (Auto) 10-25 (NEGATIVE) /LPF Urine Mucus (Auto) SLIGHT (NEGATIVE) /HPF Urine Culture Reflexed YES (NO) Urine Glucose NEGATIVE (NEGATIVE) mg/dL SARS-CoV-2 (PCR) (NEGATIVE) - Progress Progress: improved, pain not gone completely, re-examined Progress Note: 01/21/21 15:08 55 years old is evaluated for abdominal pain with vomiting and diarrhea. She is given fluid bolus along with symptomatic treatment for pain. Patient was mildly hypertensive on presentation with blood pressure in 90s, on reevaluation his it is improved in 140s. Work-up showed white count of 14, acute renal failure with a creatinine of 3.4 and a BUN of 49. Gap of almost 25 with mildly low bicarb and lactic of 3.8. Patient does have UTI as well and given a dose of Rocephin. I have obtained CT abdomen pelvis which showed partial small bowel obstruction without any colitis or perforation. Discussed with , her patient will be placed on NG suction, IV fluid, n.p.o. and is being admitted to the floor. 01/21/21 19:04 patient was initially admitted to Dr. Maxwell but her COVID-19 came back positive and now patient is being admitted to Dr. Woody. I think her symptoms of gastroenteritis are probably secondary to Covid infection. Discussed with .: Adela Will see patient in: hospital (full admit) Counseled pt/family regarding: lab results, diagnosis, rad results - Departure Departure Disposition: In-patient Admission Clinical Impression: Partial obstruction of small intestine, Dehydration, Acute UTI, COVID-19 Acute renal failure Qualifiers: Acute renal failure type: unspecified Qualified Code(s): N17.9 - Acute kidney failure, unspecified Condition: Stable Critical Care Time: No
--- NOTE | 2021-01-21 14:44 | XRAY ---
Exam: CT of the abdomen and pelvis without IV contrast from 01/21/2021. CTDI: 26.55 mGy Comparison: CT of the abdomen and pelvis without IV contrast from 07/31/2020. Indication: 55-year-old female with generalized abdominal pain, nausea and vomiting, diarrhea for 4 days; consider colitis. The patient has a history of prior hysterectomy and surgical removal of one ovary. She also has a history of bilateral kidney stones. Technique: Non-IV contrast axial images were obtained through the abdomen and pelvis. Reconstructed coronal and sagittal images were created and reviewed. Findings: On the CT biomedical analytical scientist image, there is moderate aeration within both the stomach lumen and proximal to mid small bowel. Some gas is seen distally within the right hemiabdomen as well as the colon, but these areas do not appear distended. The lung bases are clear except for some minimal compression linear atelectasis within the posterior lung sulci. The stomach is moderately distended and contains abundant fluid and secretions within it. I also note distention of the proximal and lower mid abdominal small bowel measuring up to 4.0 cm in maximum diameter. Fluid with some air-fluid levels are seen within this dilated small bowel. I note aerated bowel loops overlying the right hemiabdomen with some scattered air-fluid levels. The appendix appears unremarkable within the right lower quadrant. I do not appreciate any definite bowel wall thickening. There is some scattered colonic diverticula, most pronounced within the sigmoid colon. No evidence of acute diverticulitis is seen. The liver reveals some mild fatty infiltration within it. No definite focal hepatic mass or intrahepatic biliary duct distention is seen. The gallbladder is mildly distended and reveals no dense calcifications within it. The spleen is of unremarkable size and reveals no mass. A tiny calcified splenic granuloma is seen. Both the pancreas and adrenal glands appear unremarkable. The kidneys are of normal size and shape. Scattered bilateral renal calculi are seen, more numerous and larger on the right than left. The largest kidney stone on the right is projected over the lower pole measuring 8.4 mm in diameter, and the largest stone on the left measuring about 3.8 mm in diameter within the lower pole. Prior partially obstructing stone within the left ureteropelvic junction is no longer seen. The ureters are not distended and reveal no definite ureterolith. The urinary bladder is almost empty. No stone is seen within the urinary bladder. The patient is large with a protuberant abdomen. A fat-containing umbilical hernia is seen. Otherwise, the anterior abdominal wall appears intact. The abdominal aorta reveals mild atherosclerotic vascular calcification within the distal abdominal aorta and proximal left common iliac artery. No abdominal aortic aneurysm or abnormal retroperitoneal lymphadenopathy is seen. There is no free intraperitoneal air. The uterus is surgically absent. I believe I can detect the right ovary within the anterior right hemipelvis. It appears unremarkable. The left ovary is not seen. No abnormal pelvic lymphadenopathy or free intraperitoneal fluid is seen. The skeleton reveals no acute fracture or aggressive bone lesion. Mild lower lumbar facet joint arthropathy is seen at L4-L5 and L5-S1. Mild anterior vertebral endplate spurring is seen within the lower thoracic spine and about the lumbosacral junction. The biomedical analytical scientist film also reveals a slight S-shaped scoliosis with minimal convexity toward the left centered at the thoracolumbar junction and minimal convexity toward the right centered at L3-L4. Impression: 1. Abnormal bowel gas pattern with moderate distention of the stomach with a large amount of fluid and secretions within it. There is also abnormal distention of the proximal to mid small bowel measuring up to about 4.0 cm in diameter on coronal image #37. Abundant fluid is seen within the dilated bowel loops as well. Some air is seen within the distal small bowel as well as throughout the colon. The findings are most consistent with a partial mid to distal small bowel obstruction. There is no free intraperitoneal air. 2. The appendix is normal within the right lower quadrant. 3. Mild scattered colonic diverticulosis, most pronounced within the sigmoid colon, without diverticulitis. I appreciate no significant colonic wall thickening or pericolonic inflammatory changes. 4. Multiple bilateral nonobstructing renal stones are seen. No hydronephrosis or other renal or ureteral abnormality is seen. 5. Hepatic steatosis, small fat-containing umbilical hernia, and evidence of prior hysterectomy and probable left oophorectomy.
[2021-01-21] MEDS ORDERED: ROCEPHIN 1 Gm-D5w 50 ml Bag** 1 G/50 ML IVPB IV STA (15:07)
[2021-01-21] MEDS ORDERED: MORPHINE SULFATE 4 MG INJ IV ONE (15:29)
[2021-01-21] MEDS ORDERED: MORPHINE SULFATE 4 MG INJ ONE (15:42)
[2021-01-21] MEDS ORDERED: ROCEPHIN 1 Gm-D5w 50 ml Bag** 1 G/50 ML IVPB IV ONE (15:42)
--- NOTE | 2021-01-21 17:42 | XRAY ---
Exam: AP portable chest film from 01/21/2021. Comparison: None. Indication: NG tube placement. Findings: A conventional AP upright portable chest film was obtained which revealed a normal heart size and clear lungs. I can see an NG tube, although I do not follow it well beyond the distal thoracic esophagus. A second image was obtained centered over the gastroesophageal junction. The NG tube extends into the stomach with the tip against the greater curvature aspect of the stomach. The gap marker is within the stomach lumen. This is in satisfactory position. Impression: 1. NG tube in satisfactory position with distal tip pointing inferiorly and toward the left against the greater curvature aspect of the body of the stomach. 2. No acute cardiopulmonary disease is seen.
[2021-01-21] MEDS ORDERED: DUONEB 0.5-3 MG/3 ml Neb IH PRN (18:49)
[2021-01-21] MEDS: SODIUM CHLORIDE 0.9% W/ 40 mEq KCL 1000ML 1,000 ML IV SCH (20:55)
[2021-01-21] MEDS: TOPIRAMATE PO SCH (20:56)
[2021-01-21] MEDS: NEURONTIN 300 MG PO SCH (20:56)
[2021-01-21] MEDS: MORPHINE SULFATE 2 MG INJ IV PRN (20:59)
[2021-01-21] MEDS: Zofran 4 MG/2 ML VIAL IV PRN (20:59)
[2021-01-21] MEDS ORDERED: Zestril 20 MG PO SCH (22:00)
[2021-01-22] MEDS: Zofran 4 MG/2 ML VIAL IV PRN ×4 (02:58→20:59)
[2021-01-22] MEDS: MORPHINE SULFATE 2 MG INJ IV PRN ×3 (02:58→20:59)
[2021-01-22] MEDS ORDERED: Sodium Chloride 0.9% 1000 ML 1,000 ML ONE (04:35)
[2021-01-22] MEDS: SODIUM CHLORIDE 0.9% W/ 40 mEq KCL 1000ML 1,000 ML IV SCH ×4 (04:36→22:57)
[2021-01-22 05:47] LABS: Absolute Neutrophil Ct (ANC) 8.52 (1.4-6.9); BASOPHIL % 0.2 % (0.0-0.4); Basophil (Absolute #) 0.02 (0-0.4); Eosinophil % 4.4 % (0.00-5.0); Eosinophil (Absolute #) 0.49 (0-0.5); Hematocrit 36.6 % (35-47); Lymphocyte (Absolute #) 1.26 (1.0-4.6); Lymphocytes % 11.3 % (24.0-44.0); Mean Cell Volume 94.3 fl (78-100); Mean Corpuscular Hemoglobin 30.9 pg (26-32); Mean Corpuscular Hgb Concent. 32.8 g/dl (32-36); Mean Platelet Volume 9.5 fl (7.5-11.0); Monocyte (Absolute #) 0.88 (0.0-1.3); Monocytes % 7.9 % (0.0-12.0); Neutrophil % 76.2 % (36.0-66.0); Platelet Count 244 K/mm3 (150-450); Red Blood Count 3.88 M/mm3 (4.1-5.4); Red Cell Distribution Width 14.7 % (11.5-14.0); White Blood Count 11.2 K/mm3 (4.0-10.5)
[2021-01-22 06:04] LABS: ALBUMIN 3.8 g/dL (3.5-5.0); ANION GAP 16.1 MEQ/L (5-15); BILIRUBIN,TOTAL 0.3 mg/dL (0.2-1.3); Calcium 8.6 mg/dL (8.4-10.2); Creatinine 1 3.98 mg/dL (0.52-1.04); EST GLOMERULAR FILTRATION RATE 12.5 ML/MIN; Potassium 3.3 mmol/L (3.5-5.1); Total Protein 6.4 g/dL (6.3-8.2)
--- NOTE | 2021-01-22 08:26 | PCM.HP ---
History of Present Illness - Chief Complaint Chief Complaint: abdominal pain for 1-2 days History of Present Illness: is a 55 year old female.with history of hypertension, fibromyalgia, hyperlipidemia presented in the ER with chief complaint of generalized abdominal pain more on the left side, moderate to severe intensity, sharp stabbing in nature for the last 4 days with associated multiple episodes of nonprojectile, nonbilious vomiting without any hematemesis and multiple loose stools. She has been taking [id number] Imodium with no significant relief. She was also prescribed antiemetic by primary care but does not seem working. Patient is not able to hold anything down. She is feeling fatigued tired, drained with lack of energy to do any activities. Denies any fever or chills. Patient does report getting short of breath with exertion but denies any cough or sick contact. - Review of Systems Constitutional: No Fever, No Chills Eyes: No Symptoms Ears, Nose, & Throat: No Symptoms Respiratory: No Cough, No Short Of Breath Cardiac: No Chest Pain, No Edema, No Syncope Abdominal/Gastrointestinal: Abdominal Pain, Nausea, Vomiting, No Diarrhea Genitourinary Symptoms: No Dysuria Musculoskeletal: No Back Pain, No Neck Pain Skin: No Rash Neurological: No Dizziness, No Focal Weakness, No Sensory Changes Psychological: No Symptoms Endocrine: No Symptoms Hematologic/Lymphatic: No Symptoms Immunological/Allergic: No Symptoms Medications & Allergies Home Medications: Home Medication List ARIPiprazole [Abilify Mycite] 5 mg PO HS 07/31/20 [History Confirmed 01/21/21] Atorvastatin Calcium [Lipitor] 20 mg PO HS 07/31/20 [History Confirmed 01/21/21] Baclofen 10 mg PO TID 07/31/20 [History Confirmed 01/21/21] Fenofibrate 160 mg PO HS 07/31/20 [History Confirmed 01/21/21] Gabapentin 600 mg PO QID 07/31/20 [History Confirmed 01/21/21] Hydrocodone/Acetaminophen [Hydrocodone-Acetamin 7.5-325] 1 tab PO TID PRN 07/31/20 [History Confirmed 01/21/21] Lisinopril 20 mg [Zestril 20 MG] 20 mg PO HS 07/31/20 [History Confirmed 01/21/21] Topiramate [Topiramate ER] 50 mg PO BID 07/31/20 [History Confirmed 01/21/21] Chlorthalidone 1 tab PO DAILY 01/21/21 [History Confirmed 01/21/21] Milnacipran HCl [Savella] 1 tab PO BID 01/21/21 [History Confirmed 01/21/21] Allergies/Adverse Reactions: Allergies Allergy/AdvReac Type Severity Reaction Status Date / Time No Known Drug Allergies Allergy Verified 01/21/21 12:01 - Past Medical History Past Medical History: Yes Neurological History: Migraines ENT History: No Pertinent History Cardiac History: High Cholesterol, Hypertension Respiratory History: No Pertinent History Endocrine Medical History: No Pertinent History Musculoskelatal History: Fibromyalgia GI Medical History: No Pertinent History History: No Pertinent History Pyscho-Social History: Anxiety, Depression Reproductive Disorders: No Pertinent History - Female History Are you now?: No - Past Surgical History Past Surgical History: Yes Neuro Surgical History: No Pertinent History Cardiac History: No Pertinent History Respiratory Surgery: No Pertinent History GI Surgical History: No Pertinent History Genitourinary Surgical Hx: No Pertinent History Musculskeletal Surgical Hx: Joint Replacement, Other Female Surgical History: Hysterectomy Other Surgical History: hysterectomy. back. bilat knee - Social History Smoking Status: Never smoker Exposure to second hand smoke: No Alcohol: None Drug Use: none - Physical Exam Vital Signs: Vital Signs - 24 hr Temp Pulse Resp BP Pulse Ox 01/22/21 06:00 97.5 F 84 20 101/43 98 01/22/21 03:54 87 16 98 01/22/21 02:00 96.3 F 91 H 20 114/50 93 L 01/22/21 00:00 87 16 95 01/21/21 22:48 96.9 F 95 H 18 118/67 97 01/21/21 22:42 97 01/21/21 20:00 97.2 F 90 20 125/59 98 01/21/21 18:48 97.2 F 90 20 125/59 98 01/21/21 16:55 91 H 20 120/64 98 01/21/21 15:35 98.6 F 93 H 20 128/78 98 01/21/21 15:10 97 01/21/21 14:10 98.6 F 86 20 102/60 98 01/21/21 11:36 98.6 F 110 H 20 97/62 97 General Appearance: no apparent distress, alert Neurologic Exam: alert, oriented x 3, cooperative, normal mood/affect, nml cerebellar function, nml station & gait, sensation nml, No motor deficits Eye Exam: PERRL/EOMI, eyes nml inspection Ears, Nose, Throat Exam: normal ENT inspection, TMs normal, pharynx normal, moist mucous membranes Neck Exam: normal inspection, non-tender, supple, full range of motion Respiratory Exam: wheezing, No respiratory distress Cardiovascular Exam: regular rate/rhythm, normal heart sounds, normal peripheral pulses Gastrointestinal/Abdomen Exam: soft, tenderness, distention, No mass, No guarding, No rebound Back Exam: normal inspection, normal range of motion, No CVA tenderness, No vertebral tenderness Extremity Exam: normal inspection, normal range of motion, pelvis stable Skin Exam: normal color, warm, dry, No rash Lymphatic Exam: No adenopathy Results - Labs Lab/Micro Results: Lab Results-Last 24 Hours 01/21/21 01/21/21 01/21/21 Range/Units 12:32 12:32 12:42 WBC 14.4 H (4.0-10.5) K/mm3 RBC 5.18 (4.1-5.4) M/mm3 Hgb 15.9 (12.0-16.0) gm/dl Hct 47.7 H (35-47) % MCV 92.1 (78-100) fl MCH 30.7 (26-32) pg MCHC 33.3 (32-36) g/dl RDW 14.5 H (11.5-14.0) % Plt Count 356 (150-450) K/mm3 MPV 10.2 (7.5-11.0) fl Gran % 84.3 H (36.0-66.0) % Eos # (Auto) 0.13 (0-0.5) Absolute Lymphs (auto) 1.28 (1.0-4.6) Absolute Monos (auto) 0.84 (0.0-1.3) Lymphocytes % 8.9 L (24.0-44.0) % Monocytes % 5.8 (0.0-12.0) % Eosinophils % 0.9 (0.00-5.0) % Basophils % 0.1 (0.0-0.4) % Absolute Granulocytes 12.15 H (1.4-6.9) Basophils # 0.01 (0-0.4) D-Dimer (215-500) ng/mL Sodium 141 (137-145) mmol/L Potassium 3.2 L (3.5-5.1) mmol/L Chloride 99 (98-107) mmol/L Carbon Dioxide 20 L (22-30) mmol/L Anion Gap 24.9 H (5-15) MEQ/L BUN 49 H (7-17) mg/dL Creatinine 3.44 H (0.52-1.04) mg/dL Estimated GFR 14.8 ML/MIN Glucose 156 H (74-106) mg/dL Lactic Acid (0.4-2.0) Calcium 10.5 H (8.4-10.2) mg/dL Total Bilirubin 0.60 (0.2-1.3) mg/dL AST 25 (14-36) U/L ALT 25 (0-35) U/L Alkaline Phosphatase 64 (38-126) U/L Serum Total Protein 8.6 H (6.3-8.2) g/dL Albumin 5.4 H (3.5-5.0) g/dL Lipase 298 (23-300) U/L Urine Color CONY (YELLOW) Urine Appearance CLOUDY (CLEAR) Urine pH 5.0 (5-6) Ur Specific [place] 1.024 (1.005-1.025) Urine Protein 100 (Negative) Urine Ketones NEGATIVE (NEGATIVE) Urine Blood MODERATE (0-5) Christopher/ul Urine Nitrite NEGATIVE (NEGATIVE) Urine Bilirubin NEGATIVE (NEGATIVE) Urine Urobilinogen NEGATIVE (0-1) mg/dL Ur Leukocyte Esterase MODERATE (NEGATIVE) Urine WBC (Auto) 16-25 (0-5) /HPF Urine RBC (Auto) 6-10 (0-2) /HPF U Hyaline Cast (Auto) 6-10 (0-2) /LPF U Epithel Cells (Auto) MANY (FEW) /HPF Urine Bacteria (Auto) MANY (NEGATIVE) /HPF Granular Casts (Auto) 10-25 (NEGATIVE) /LPF Urine Mucus (Auto) SLIGHT (NEGATIVE) /HPF Urine Culture Reflexed YES (NO) Urine Glucose NEGATIVE (NEGATIVE) mg/dL SARS-CoV-2 (PCR) (NEGATIVE) 01/21/21 01/21/21 01/21/21 Range/Units 12:42 14:58 16:02 WBC (4.0-10.5) K/mm3 RBC (4.1-5.4) M/mm3 Hgb (12.0-16.0) gm/dl Hct (35-47) % MCV (78-100) fl MCH (26-32) pg MCHC (32-36) g/dl RDW (11.5-14.0) % Plt Count (150-450) K/mm3 MPV (7.5-11.0) fl Gran % (36.0-66.0) % Eos # (Auto) (0-0.5) Absolute Lymphs (auto) (1.0-4.6) Absolute Monos (auto) (0.0-1.3) Lymphocytes % (24.0-44.0) % Monocytes % (0.0-12.0) % Eosinophils % (0.00-5.0) % Basophils % (0.0-0.4) % Absolute Granulocytes (1.4-6.9) Basophils # (0-0.4) D-Dimer (215-500) ng/mL Sodium (137-145) mmol/L Potassium (3.5-5.1) mmol/L Chloride (98-107) mmol/L Carbon Dioxide (22-30) mmol/L Anion Gap (5-15) MEQ/L BUN (7-17) mg/dL Creatinine (0.52-1.04) mg/dL Estimated GFR ML/MIN Glucose (74-106) mg/dL Lactic Acid 3.8 H 1.8 (0.4-2.0) Calcium (8.4-10.2) mg/dL Total Bilirubin (0.2-1.3) mg/dL AST (14-36) U/L ALT (0-35) U/L Alkaline Phosphatase (38-126) U/L Serum Total Protein (6.3-8.2) g/dL Albumin (3.5-5.0) g/dL Lipase (23-300) U/L Urine Color (YELLOW) Urine Appearance (CLEAR) Urine pH (5-6) Ur Specific [place] (1.005-1.025) Urine Protein (Negative) Urine Ketones (NEGATIVE) Urine Blood (0-5) Christopher/ul Urine Nitrite (NEGATIVE) Urine Bilirubin (NEGATIVE) Urine Urobilinogen (0-1) mg/dL Ur Leukocyte Esterase (NEGATIVE) Urine WBC (Auto) (0-5) /HPF Urine RBC (Auto) (0-2) /HPF U Hyaline Cast (Auto) (0-2) /LPF U Epithel Cells (Auto) (FEW) /HPF Urine Bacteria (Auto) (NEGATIVE) /HPF Granular Casts (Auto) (NEGATIVE) /LPF Urine Mucus (Auto) (NEGATIVE) /HPF Urine Culture Reflexed (NO) Urine Glucose (NEGATIVE) mg/dL SARS-CoV-2 (PCR) POSITIVE A (NEGATIVE) 01/22/21 01/22/21 01/22/21 Range/Units 05:37 05:37 05:37 WBC 11.2 H (4.0-10.5) K/mm3 RBC 3.88 L (4.1-5.4) M/mm3 Hgb 12.0 D (12.0-16.0) gm/dl Hct 36.6 (35-47) % MCV 94.3 (78-100) fl MCH 30.9 (26-32) pg MCHC 32.8 (32-36) g/dl RDW 14.7 H (11.5-14.0) % Plt Count 244 (150-450) K/mm3 MPV 9.5 (7.5-11.0) fl Gran % 76.2 H (36.0-66.0) % Eos # (Auto) 0.49 (0-0.5) Absolute Lymphs (auto) 1.26 (1.0-4.6) Absolute Monos (auto) 0.88 (0.0-1.3) Lymphocytes % 11.3 L (24.0-44.0) % Monocytes % 7.9 (0.0-12.0) % Eosinophils % 4.4 (0.00-5.0) % Basophils % 0.2 (0.0-0.4) % Absolute Granulocytes 8.52 H (1.4-6.9) Basophils # 0.02 (0-0.4) D-Dimer 1286 H* (215-500) ng/mL Sodium 137 (137-145) mmol/L Potassium 3.3 L (3.5-5.1) mmol/L Chloride 106 (98-107) mmol/L Carbon Dioxide 19 L (22-30) mmol/L Anion Gap 16.1 H (5-15) MEQ/L BUN 59 H (7-17) mg/dL Creatinine 3.98 H (0.52-1.04) mg/dL Estimated GFR 12.5 ML/MIN Glucose 112 H (74-106) mg/dL Lactic Acid (0.4-2.0) Calcium 8.6 D (8.4-10.2) mg/dL Total Bilirubin 0.30 (0.2-1.3) mg/dL AST 17 (14-36) U/L ALT 16 (0-35) U/L Alkaline Phosphatase 43 (38-126) U/L Serum Total Protein 6.4 (6.3-8.2) g/dL Albumin 3.8 (3.5-5.0) g/dL Lipase (23-300) U/L Urine Color (YELLOW) Urine Appearance (CLEAR) Urine pH (5-6) Ur Specific [place] (1.005-1.025) Urine Protein (Negative) Urine Ketones (NEGATIVE) Urine Blood (0-5) Christopher/ul Urine Nitrite (NEGATIVE) Urine Bilirubin (NEGATIVE) Urine Urobilinogen (0-1) mg/dL Ur Leukocyte Esterase (NEGATIVE) Urine WBC (Auto) (0-5) /HPF Urine RBC (Auto) (0-2) /HPF U Hyaline Cast (Auto) (0-2) /LPF U Epithel Cells (Auto) (FEW) /HPF Urine Bacteria (Auto) (NEGATIVE) /HPF Granular Casts (Auto) (NEGATIVE) /LPF Urine Mucus (Auto) (NEGATIVE) /HPF Urine Culture Reflexed (NO) Urine Glucose (NEGATIVE) mg/dL SARS-CoV-2 (PCR) (NEGATIVE) Microbiology 01/21/21 12:42 Urine Culture - Preliminary Clean Catch Midstream <10K NORMAL SKIN CALEB PROBABLE SKIN CONTAMINANT - Radiology Impressions Radiology Exams & Impressions: Radiology Procedures Category Date Time Status ABDOMEN AND PELVIS W/0 CONTRAS [CT] Routine Exams 01/21/21 13:41 Completed CHEST 1 VIEW (PORTABLE) Stat Exams 01/21/21 16:39 Completed Assessment/Plan (1) Partial obstruction of small intestine Current Visit: Yes Status: Acute Assessment & Plan: Last Vital Signs Temp 97.5 F 01/22/21 06:00 Pulse 84 01/22/21 06:00 Resp 20 01/22/21 06:00 BP 101/43 01/22/21 06:00 Pulse Ox 98 01/22/21 06:00 Allergies No Known Drug Allergies Allergy (Verified 01/21/21 12:01) Active Medications Gabapentin (Neurontin 300 Mg) 600 mg PO QID [facility] Stop: 02/20/21 21:59 Last Admin: 01/21/21 20:56 Dose: 600 mg Documented by: Potassium Chloride/Sodium Chloride (Sodium Chloride 0.9% W/ 40 Meq Kcl 1000ml) 1,000 mls @ 125 mls/hr IV .Q8H [facility] Stop: 02/20/21 18:48 Last Admin: 01/22/21 04:36 Dose: 125 mls/hr Documented by: Ceftriaxone Sodium/Dextrose (Rocephin 1 Gm-D5w 50 Ml Bag) 1 g in 50 mls @ 100 mls/hr IV Q24H10 [facility] Stop: 01/25/21 09:59 Lisinopril (Zestril 20 Mg) 20 mg PO HS [facility] Stop: 02/20/21 21:59 Morphine Sulfate (Morphine Sulfate 2 Mg Inj) 2 mg IV Q4H PRN PRN PRN Reason: PAIN Stop: 01/26/21 18:48 Last Admin: 01/22/21 02:58 Dose: 2 mg Documented by: Ondansetron HCl (Zofran 4 Mg/2 Ml Vial) 4 mg IV Q6H PRN PRN PRN Reason: NAUSEA/VOMITING Stop: 02/20/21 18:48 Last Admin: 01/22/21 02:58 Dose: 4 mg Documented by: Pantoprazole Sodium (Protonix 40 Mg Iv) 40 mg IV Q24H10 [facility] Stop: 02/21/21 09:59 Topiramate (Topiramate) 50 mg PO BID [facility] Stop: 02/20/21 21:59 Last Admin: 01/21/21 20:56 Dose: 50 mg Documented by: Intake & Output 01/21/21 01/22/21 11:59 11:59 Intake Total 1127 Output Total 125 Balance 1002 Weight 114.2 kg 115.6 kg Orders 01/21/21 20:30 Pulse Oximetry .continuos Lab Tests 01/21/21 01/21/21 01/21/21 12:32 12:32 12:42 WBC 14.4 H RBC 5.18 Hgb 15.9 Hct 47.7 H MCV 92.1 MCH 30.7 MCHC 33.3 RDW 14.5 H Plt Count 356 MPV 10.2 Gran % 84.3 H Eos # (Auto) 0.13 Absolute Lymphs (auto) 1.28 Absolute Monos (auto) 0.84 Lymphocytes % 8.9 L Monocytes % 5.8 Eosinophils % 0.9 Basophils % 0.1 Absolute Granulocytes 12.15 H Basophils # 0.01 D-Dimer Sodium 141 Potassium 3.2 L Chloride 99 Carbon Dioxide 20 L Anion Gap 24.9 H BUN 49 H Creatinine 3.44 H Estimated GFR 14.8 Glucose 156 H Lactic Acid Calcium 10.5 H Total Bilirubin 0.60 AST 25 ALT 25 Alkaline Phosphatase 64 Serum Total Protein 8.6 H Albumin 5.4 H Lipase 298 Urine Color CONY Urine Appearance CLOUDY Urine pH 5.0 Ur Specific [place] 1.024 Urine Protein 100 Urine Ketones NEGATIVE Urine Blood MODERATE Urine Nitrite NEGATIVE Urine Bilirubin NEGATIVE Urine Urobilinogen NEGATIVE Ur Leukocyte Esterase MODERATE Urine WBC (Auto) 16-25 Urine RBC (Auto) 6-10 U Hyaline Cast (Auto) 6-10 U Epithel Cells (Auto) MANY Urine Bacteria (Auto) MANY Granular Casts (Auto) 10-25 Urine Mucus (Auto) SLIGHT Urine Culture Reflexed YES Urine Glucose NEGATIVE SARS-CoV-2 (PCR) 01/21/21 01/21/21 01/21/21 12:42 14:58 16:02 WBC RBC Hgb Hct MCV MCH MCHC RDW Plt Count MPV Gran % Eos # (Auto) Absolute Lymphs (auto) Absolute Monos (auto) Lymphocytes % Monocytes % Eosinophils % Basophils % Absolute Granulocytes Basophils # D-Dimer Sodium Potassium Chloride Carbon Dioxide Anion Gap BUN Creatinine Estimated GFR Glucose Lactic Acid 3.8 H 1.8 Calcium Total Bilirubin AST ALT Alkaline Phosphatase Serum Total Protein Albumin Lipase Urine Color Urine Appearance Urine pH Ur Specific [place] Urine Protein Urine Ketones Urine Blood Urine Nitrite Urine Bilirubin Urine Urobilinogen Ur Leukocyte Esterase Urine WBC (Auto) Urine RBC (Auto) U Hyaline Cast (Auto) U Epithel Cells (Auto) Urine Bacteria (Auto) Granular Casts (Auto) Urine Mucus (Auto) Urine Culture Reflexed Urine Glucose SARS-CoV-2 (PCR) POSITIVE A 01/22/21 01/22/21 01/22/21 05:37 05:37 05:37 WBC 11.2 H RBC 3.88 L Hgb 12.0 D Hct 36.6 MCV 94.3 MCH 30.9 MCHC 32.8 RDW 14.7 H Plt Count 244 MPV 9.5 Gran % 76.2 H Eos # (Auto) 0.49 Absolute Lymphs (auto) 1.26 Absolute Monos (auto) 0.88 Lymphocytes % 11.3 L Monocytes % 7.9 Eosinophils % 4.4 Basophils % 0.2 Absolute Granulocytes 8.52 H Basophils # 0.02 D-Dimer 1286 H* Sodium 137 Potassium 3.3 L Chloride 106 Carbon Dioxide 19 L Anion Gap 16.1 H BUN 59 H Creatinine 3.98 H Estimated GFR 12.5 Glucose 112 H Lactic Acid Calcium 8.6 D Total Bilirubin 0.30 AST 17 ALT 16 Alkaline Phosphatase 43 Serum Total Protein 6.4 Albumin 3.8 Lipase Urine Color Urine Appearance Urine pH Ur Specific [place] Urine Protein Urine Ketones Urine Blood Urine Nitrite Urine Bilirubin Urine Urobilinogen Ur Leukocyte Esterase Urine WBC (Auto) Urine RBC (Auto) U Hyaline Cast (Auto) U Epithel Cells (Auto) Urine Bacteria (Auto) Granular Casts (Auto) Urine Mucus (Auto) Urine Culture Reflexed Urine Glucose SARS-CoV-2 (PCR) Microbiology 01/21/21 12:42 Clean Catch Midstream Urine Culture - Preliminary <10K NORMAL SKIN CALEB PROBABLE SKIN CONTAMINANT Code(s): K56.600 - PARTIAL INTESTINAL OBSTRUCTION, UNSPECIFIED TO CAUSE (2) COVID-19 virus RNA not detected Current Visit: Yes Status: Acute Code(s): Z20.822 - CONTACT WITH AND EXPECTED EXPOSURE TO COVID 19
--- NOTE | 2021-01-22 09:25 | XRAY ---
Indication: Bowel obstruction. Positive Covid 19. Comparison: None KUB demonstrates mild air distended small/large bowel loops favoring obstruction as reported on CT abdomen/pelvis one day earlier. No free air. NG tube tip in stomach.
[2021-01-22] MEDS ORDERED: MEDICATION INTERVENTION PO SCH (09:30)
[2021-01-22] MEDS ORDERED: ENOXAPARIN SODIUM SQ SCH ×2 (10:00)
[2021-01-22] MEDS ORDERED: MILNACIPRAN HCL PO SCH (10:00)
[2021-01-22] MEDS ORDERED: SODIUM CHLORIDE 0.9% W/ 40 mEq KCL 1000ML 1,000 ML IV SCH (10:30)
[2021-01-22] MEDS: Decadron 4 MG INJ IV SCH (10:32)
[2021-01-22] MEDS: PROTONIX 40 MG IV IV SCH (10:33)
[2021-01-22] MEDS: NEURONTIN 300 MG PO SCH ×4 (10:34→20:58)
[2021-01-22] MEDS: TOPIRAMATE PO SCH ×2 (10:35→20:59)
[2021-01-22] MEDS ORDERED: REMDESIVIR 200 MG in Sodium Chloride 0.9% 250 ML 250 ML IV ONE (11:00)
[2021-01-22] MEDS: ROCEPHIN 1 Gm-D5w 50 ml Bag** 1 G/50 ML IVPB IV SCH (11:00)
[2021-01-22] MEDS: SODIUM CHLORIDE IV SCH ×2 (12:05→20:23)
[2021-01-22] MEDS: KCL IV SCH ×2 (12:05→20:23)
[2021-01-22] MEDS: ENOXAPARIN SODIUM SQ SCH (12:05)
[2021-01-22 18:20] LABS: ANION GAP 14.8 MEQ/L (5-15); Calcium 8.5 mg/dL (8.4-10.2); Creatinine 1 2.51 mg/dL (0.52-1.04); EST GLOMERULAR FILTRATION RATE 21.3 ML/MIN; Potassium 4.1 mmol/L (3.5-5.1)
[2021-01-22] MEDS: Zestril 20 MG PO SCH (20:58)
[2021-01-23] MEDS: MORPHINE SULFATE 2 MG INJ IV PRN ×2 (04:20→08:29)
[2021-01-23] MEDS: Zofran 4 MG/2 ML VIAL IV PRN (04:20)
[2021-01-23 07:04] LABS: Hematocrit 36.4 % (35-47); Hemoglobin 11.8 gm/dl (12.0-16.0); Mean Cell Volume 95.5 fl (78-100); Mean Corpuscular Hgb Concent. 32.4 g/dl (32-36); Mean Platelet Volume 10.1 fl (7.5-11.0); Platelet Count 245 K/mm3 (150-450); Red Blood Count 3.81 M/mm3 (4.1-5.4); Red Cell Distribution Width 14.4 % (11.5-14.0); White Blood Count 8.1 K/mm3 (4.0-10.5)
[2021-01-23 07:41] LABS: ANION GAP 15.1 MEQ/L (5-15); Calcium 8.8 mg/dL (8.4-10.2); Creatinine 1 1.55 mg/dL (0.52-1.04); EST GLOMERULAR FILTRATION RATE 37.2 ML/MIN; Potassium 3.7 mmol/L (3.5-5.1)
--- NOTE | 2021-01-23 07:44 | CONS ---
CONSULT DATE: 01/22/2021 HISTORY: The patient has some new diarrhea, vomiting. She had a positive COVID test. She is in the COVID unit. She is seen and examined. She is alert and oriented. She looks fairly vigorous. She did not have a predominance of respiratory complaints. She had some abdominal pain and diarrhea. Her urine output is satisfactory. Vital signs are satisfactory. PHYSICAL EXAMINATION: On abdominal examination she is moderately obese. She has very mild tenderness but no peritoneal signs. She is not real, real distended. She is not tympanitic. Her CT scan is reviewed consistent with partial small bowel obstruction. IMPRESSION: I think most likely this is a result of COVID and the GI symptoms are probably secondary to COVID. I think it is just an ileus. I think it will resolve. She does have an NG tube in place and the material is slightly foul but not terrible. PLAN: We will continue to follow her along but I think this will spontaneously resolve.
[2021-01-23] MEDS: SODIUM CHLORIDE 0.9% W/ 40 mEq KCL 1000ML 1,000 ML IV SCH ×2 (09:06→09:58)
[2021-01-23] MEDS: PROTONIX 40 MG IV IV SCH (09:58)
[2021-01-23] MEDS: Decadron 4 MG INJ IV SCH (09:58)
[2021-01-23] MEDS: ENOXAPARIN SODIUM SQ SCH (09:58)
[2021-01-23] MEDS: NEURONTIN 300 MG PO SCH ×4 (09:58→21:00)
[2021-01-23] MEDS: REMDESIVIR 100 MG in Sodium Chloride 0.9% 100 ML BAG 100 ML IV SCH (09:58)
[2021-01-23] MEDS: TOPIRAMATE PO SCH ×2 (09:59→21:00)
[2021-01-23] MEDS: ROCEPHIN 1 Gm-D5w 50 ml Bag** 1 G/50 ML IVPB IV SCH (11:24)
--- NOTE | 2021-01-23 11:52 | XRAY ---
Indication: Bowel obstruction. Positive Covid 19. Comparison: One day earlier. KUB demonstrates diminished air distended bowel loops and NG tube removal. Bowel gas pattern appears nonspecific without focal bowel dilatation/obstruction. Solid organs and osseous structures unremarkable.
[2021-01-23] MEDS: Zestril 20 MG PO SCH (21:02)
[2021-01-24] MEDS: SODIUM CHLORIDE 0.9% W/ 40 mEq KCL 1000ML 1,000 ML IV SCH (00:13)
[2021-01-24 06:48] LABS: Hematocrit 36.5 % (35-47); Mean Cell Volume 94.3 fl (78-100); Mean Corpuscular Hgb Concent. 32.9 g/dl (32-36); Mean Platelet Volume 9.7 fl (7.5-11.0); Platelet Count 264 K/mm3 (150-450); Red Blood Count 3.87 M/mm3 (4.1-5.4); Red Cell Distribution Width 13.9 % (11.5-14.0); White Blood Count 7.2 K/mm3 (4.0-10.5)
[2021-01-24 06:57] LABS: ALKALINE PHOSPHATASE 52 U/L (38-126); ANION GAP 14.8 MEQ/L (5-15); BLOOD UREA NITROGEN 24 mg/dL (7-17); CHLORIDE 105 mmol/L (98-107); Calcium 9.1 mg/dL (8.4-10.2); Carbon Dioxide 22 mmol/L (22-30); Creatinine 1 1.01 mg/dL (0.52-1.04); EST GLOMERULAR FILTRATION RATE > 60.0 ML/MIN; Glucose 108 mg/dL (74-106); Potassium 3.7 mmol/L (3.5-5.1); SGOT/AST 39 U/L (14-36); SGPT/ALT 24 U/L (0-35); SODIUM 138 mmol/L (137-145); Total Protein 6.8 g/dL (6.3-8.2)
[2021-01-24] MEDS: REMDESIVIR 100 MG in Sodium Chloride 0.9% 100 ML BAG 100 ML IV SCH (09:51)
[2021-01-24] MEDS: ROCEPHIN 1 Gm-D5w 50 ml Bag** 1 G/50 ML IVPB IV SCH (09:51)
[2021-01-24] MEDS: Decadron 4 MG INJ IV SCH (09:51)
[2021-01-24] MEDS: PROTONIX 40 MG IV IV SCH (09:52)
[2021-01-24] MEDS: NEURONTIN 300 MG PO SCH (09:52)
[2021-01-24] MEDS: ENOXAPARIN SODIUM SQ SCH (09:53)
[2021-01-24] MEDS: TOPIRAMATE PO SCH (09:54)
[2021-01-24 12:00] VITALS: BP 134/74; PULSE 72
[2021-01-25 09:55] VITALS: O2SAT 97
--- NOTE | 2021-01-26 13:25 | PROG NOTE ---
HISTORY: The patient has marked improvement. She came in with the diagnosis of obstructive sleep apnea and coronavirus. She has had multiple bowel movements. Her abdomen is much softer. She has much less pain. Most encouraging. IMPRESSION: I think this is secondary to the COVID and I think it will spontaneously resolve and was probably just an ileus.
== END 2021-01-24 12:20 | disposition home or self-care (01) | DRG 389 ==
LOC: ED 11:31 → MED SURG 18:25
PROVIDERS: ADMIT General Practice; ATTEND General Practice
DX: K56.600 Partial intestinal obstruction, unspecified as to cause (principal); N39.0 Urinary tract infection, site not specified; R11.2 Nausea with vomiting, unspecified; R19.7 Diarrhea, unspecified; R10.84 Generalized abdominal pain; I10 Essential (primary) hypertension; E78.5 Hyperlipidemia, unspecified; Z79.899 Other long term (current) drug therapy; R51.9 Headache, unspecified; Z20.822 Contact with and (suspected) exposure to COVID-19; G47.33 Obstructive sleep apnea (adult) (pediatric); Z20.828 Contact with and (suspected) exposure to other viral communicable diseases; R06.02 Shortness of breath; E86.0 Dehydration
CPT/HCPCS: 36000; 36415; 71045; 74018; 74176; 80048; 80053; 81001; 83605; 83690; 85025; 85027; 85379; 87086; 94762; 96360; 96365; 96374; 96375; 99285; J0696; J1100; J1650; J2270; J2405; U0003; A9270-GY

== ENCOUNTER 2021-02-04 13:55 | Day surgery (SDC) | payer BC ==
[2021-02-04] MEDS ORDERED: Depo-Medrol 40 MG/ML IM ONE (13:56)
[2021-02-04] MEDS ORDERED: Xylocaine 1% Vial 30 ML PF IJ ONE (13:56)
[2021-02-04] MEDS ORDERED: BUPIVACAINE 0.5% VIAL IJ ONE (13:56)
[2021-02-04] MEDS ORDERED: Lactated Ringers 1,000 ML IV ONE (14:57)
[2021-02-04] MEDS ORDERED: DIPRIVAN 200 MG/20 ML IV ONE (16:15)
--- NOTE | 2021-02-04 16:53 | XRAY ---
25 seconds fluoroscopy time in surgery for right L4-S1 RFA.
--- NOTE | 2021-02-04 16:55 | XRAY ---
Indication: Right L4-L5 RFA. Intraoperative fluoroscopy provided for 25 seconds. 3 digital spot images submitted for interpretation demonstrates posterior needle tips projecting over the expected right L4-S1 nerve roots. Correlate with intraoperative findings/report.
== END 2021-02-04 16:40 | disposition home or self-care (01) ==
LOC: SDC-PAIN 13:55
PROVIDERS: ATTEND Psychiatry & Neurology Pain Medicine
DX: M47.816 Spondylosis without myelopathy or radiculopathy, lumbar region (principal); Z79.899 Other long term (current) drug therapy
CPT/HCPCS: 64635; 64636; 72100; 77002; J1030; J2001; J2704

== ENCOUNTER 2021-02-20 22:04 | Emergency (ER) | payer BC, MEDICARE ==
[2021-02-20] MEDS ORDERED: BABY ASPIRIN 81 MG CHEW PO ONE (22:12)
--- NOTE | 2021-02-20 22:12 | ERPHSYRPT ---
- History of Present Illness Time Seen by Provider: 02/20/21 22:11 Historian: patient, family Exam Limitations: no limitations Physician History: This is a 55-year-old obese white female with a history of hypertension who presents with midline substernal and epigastric pain that she describes as an ache without radiation. Food intake did not bring about the pain symptoms. Patient still has her gallbladder in in place. Patient does not have any known cardiac history. She is never had this kind of pain in the past. She is not short of breath. She has had no fevers chills or cough. She has no nausea vomiting or diarrhea. She has no abdominal pain. Timing/Duration: yesterday Activities at Onset: none Quality: aching Location: substernal, epigastric Chest Pain Radiation: no radiation Severity of Pain-Max: moderate Severity of Pain-Current: mild (To moderate) Modifying Factors: Improves With: nothing Associated Symptoms: denies symptoms, hurts to breathe (With deep inspiration), No chills, No fever Prior Chest Pain/Cardiac Workup: no prior chest pain, no prior cardiac workup Nitro Today/Relief: no nitro taken today Aspirin Treatment Today: no aspirin today Allergies/Adverse Reactions: No Known Drug Allergies Allergy (Verified 01/21/21 12:01) Home Medications: ARIPiprazole [Abilify Mycite] 5 mg PO HS 07/31/20 [History] Atorvastatin Calcium [Lipitor] 20 mg PO HS 07/31/20 [History] Baclofen 10 mg PO TID 07/31/20 [History] Fenofibrate 160 mg PO HS 07/31/20 [History] Gabapentin 600 mg PO QID 07/31/20 [History] Hydrocodone/Acetaminophen [Hydrocodone-Acetamin 7.5-325] 1 tab PO TID PRN 07/31 [History] Lisinopril 20 mg [Zestril 20 MG] 20 mg PO HS 07/31/20 [History] Topiramate [Topiramate ER] 50 mg PO BID 07/31/20 [History] Chlorthalidone 1 tab PO DAILY 01/21/21 [History] Milnacipran HCl [Savella] 1 tab PO BID 01/21/21 [History] Hx Tetanus, Diphtheria Vaccination/Date Given: Yes Hx Influenza Vaccination/Date Given: No Hx Pneumococcal Vaccination/Date Given: No Travel Risk - International Travel Have you traveled outside of the country in past 3 weeks: No - Coronavirus Screening Are you exhibiting any of the following symptoms?: No Close contact with a COVID-19 positive Pt in past 14-21 Days: No - Vaccine Status Have you recieved a Covid-19 vaccination: Yes 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[employer] Constitutional: No Symptoms Eyes: No Symptoms Ears, Nose, & Throat: No Symptoms Respiratory: No Symptoms Cardiac: Chest Pain Abdominal/Gastrointestinal: Abdominal Pain (Epigastric), No Nausea, No Vomiting Genitourinary Symptoms: No Symptoms Musculoskeletal: No Symptoms Skin: No Symptoms Neurological: No Symptoms Psychological: No Symptoms Endocrine: No Symptoms Hematologic/Lymphatic: No Symptoms Immunological/Allergic: No Symptoms All Other Systems: Reviewed and Negative - Past Medical History Pertinent Past Medical History: Yes Neurological History: Migraines ENT History: No Pertinent History Cardiac History: High Cholesterol, Hypertension Respiratory History: No Pertinent History Endocrine Medical History: No Pertinent History Musculoskeletal History: Fibromyalgia GI Medical History: No Pertinent History History: No Pertinent History Psycho-Social History: Anxiety, Depression Female Reproductive Disorders: No Pertinent History - Past Surgical History Past Surgical History: Yes Neuro Surgical History: No Pertinent History Cardiac: No Pertinent History Respiratory: No Pertinent History Gastrointestinal: No Pertinent History Genitourinary: No Pertinent History Musculoskeletal: Joint Replacement, Other Female Surgical History: Hysterectomy Other Surgical History: hysterectomy. back. bilat knee - Social History Smoking Status: Never smoker Exposure to second hand smoke: No Drug Use: none Patient Lives Alone: No - Nursing Vital Signs Nursing Vital Signs: Initial Vital Signs Pulse Rate 94 H 02/20/21 22:05 Respiratory Rate 24 02/20/21 22:05 Blood Pressure 142/74 02/20/21 22:05 O2 Sat by Pulse Oximetry 100 02/20/21 22:05 Pain Scale Pain Intensity 5 - Physical Exam General Appearance: no apparent distress, alert, anxiety, obese Eye Exam: PERRL/EOMI Ears, Nose, Throat Exam: normal ENT inspection, moist mucous membranes Neck Exam: normal inspection, non-tender, supple, full range of motion Respiratory Exam: normal breath sounds, chest tenderness, lungs clear, airway intact, No respiratory distress Cardiovascular Exam: regular rate/rhythm, normal heart sounds, normal peripheral pulses Gastrointestinal/Abdomen Exam: soft, normal bowel sounds, tenderness (Mild epigastric) Pelvic Exam: not done Rectal Exam: not done Back Exam: normal inspection, normal range of motion, CVA tenderness, vertebral tenderness Extremity Exam: normal inspection, normal range of motion, pelvis stable Neurologic Exam: alert, oriented x 3, cooperative, 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 There is no comparison EKG.) Ordered Tests: Active Orders 24 hr Category Date Time Status Restaurant Cook STAT Care 02/20/21 22:12 Active EKG-ER Only STAT Care 02/20/21 22:12 Active IV Insertion STAT Care 02/20/21 22:12 Active Pulse Oximetry (ED) STAT Care 02/20/21 22:12 Active CHEST 1 VIEW (PORTABLE) Stat Exams 02/20/21 22:12 Taken CBC W DIFF Stat Lab 02/20/21 20:20 Completed CMP Stat Lab 02/20/21 20:20 Completed D-DIMER QUANTITATIVE Stat Lab 02/20/21 20:20 Completed NT PRO BNP Stat Lab 02/20/21 20:20 Completed PROTIME WITH INR Stat Lab 02/20/21 20:20 Completed TROPONIN Q3H Lab 02/20/21 20:20 Completed TROPONIN Q3H Lab 02/21/21 01:15 Ordered TROPONIN Q3H Lab 02/21/21 04:15 Ordered TROPONIN Q3H Lab 02/21/21 07:15 Ordered TROPONIN Q3H Lab 02/21/21 10:15 Ordered Medication Summary Discontinued Medications Generic Name Dose Route Start Last Admin Trade Name Freq PRN Reason Stop Dose Admin Aspirin 324 mg 02/20/21 22:12 02/20/21 22:22 Baby Aspirin 81 Mg Chew PO 02/20/21 22:13 324 mg STAT ONE Administration Lab/Rad Data: Laboratory Result Diagrams 02/20/21 20:20 02/20/21 20:20 Laboratory Results 02/20/21 02/20/21 02/20/21 Range/Units 20:20 20:20 20:20 WBC (4.0-10.5) K/mm3 RBC (4.1-5.4) M/mm3 Hgb (12.0-16.0) gm/dl Hct (35-47) % MCV (78-100) fl MCH (26-32) pg MCHC (32-36) g/dl RDW (11.5-14.0) % Plt Count (150-450) K/mm3 MPV (7.5-11.0) fl Gran % (36.0-66.0) % Eos # (Auto) (0-0.5) Absolute Lymphs (auto) (1.0-4.6) Absolute Monos (auto) (0.0-1.3) Lymphocytes % (24.0-44.0) % Monocytes % (0.0-12.0) % Eosinophils % (0.00-5.0) % Basophils % (0.0-0.4) % Absolute Granulocytes (1.4-6.9) Basophils # (0-0.4) PT 11.0 (9.4-12.5) SECONDS INR 0.93 (0.8-3.0) D-Dimer 444 (215-500) ng/mL Sodium 143 (137-145) mmol/L Potassium 3.9 (3.5-5.1) mmol/L Chloride 104 (98-107) mmol/L Carbon Dioxide 30 (22-30) mmol/L Anion Gap 12.1 (5-15) MEQ/L BUN 30 H (7-17) mg/dL Creatinine 1.28 H (0.52-1.04) mg/dL Estimated GFR 46.4 ML/MIN Glucose 100 (74-106) mg/dL Calcium 10.0 (8.4-10.2) mg/dL Total Bilirubin 0.40 (0.2-1.3) mg/dL AST 32 (14-36) U/L ALT 31 (0-35) U/L Alkaline Phosphatase 63 (38-126) U/L Troponin I < 0.012 (0.000-0.034) ng/mL NT-Pro-B Natriuret Pep 31.4 (0-900) pg/mL Serum Total Protein 7.1 (6.3-8.2) g/dL Albumin 4.2 (3.5-5.0) g/dL 02/20/21 Range/Units 20:20 WBC 5.9 (4.0-10.5) K/mm3 RBC 3.89 L (4.1-5.4) M/mm3 Hgb 11.7 L (12.0-16.0) gm/dl Hct 37.0 (35-47) % MCV 95.1 (78-100) fl MCH 30.1 (26-32) pg MCHC 31.6 L (32-36) g/dl RDW 13.8 (11.5-14.0) % Plt Count 270 (150-450) K/mm3 MPV 9.1 (7.5-11.0) fl Gran % 51.9 (36.0-66.0) % Eos # (Auto) 0.30 (0-0.5) Absolute Lymphs (auto) 1.88 (1.0-4.6) Absolute Monos (auto) 0.64 (0.0-1.3) Lymphocytes % 31.7 (24.0-44.0) % Monocytes % 10.8 (0.0-12.0) % Eosinophils % 5.1 H (0.00-5.0) % Basophils % 0.5 (0.0-0.4) % Absolute Granulocytes 3.08 (1.4-6.9) Basophils # 0.03 (0-0.4) PT (9.4-12.5) SECONDS INR (0.8-3.0) D-Dimer (215-500) ng/mL Sodium (137-145) mmol/L Potassium (3.5-5.1) mmol/L Chloride (98-107) mmol/L Carbon Dioxide (22-30) mmol/L Anion Gap (5-15) MEQ/L BUN (7-17) mg/dL Creatinine (0.52-1.04) mg/dL Estimated GFR ML/MIN Glucose (74-106) mg/dL Calcium (8.4-10.2) mg/dL Total Bilirubin (0.2-1.3) mg/dL AST (14-36) U/L ALT (0-35) U/L Alkaline Phosphatase (38-126) U/L Troponin I (0.000-0.034) ng/mL NT-Pro-B Natriuret Pep (0-900) pg/mL Serum Total Protein (6.3-8.2) g/dL Albumin (3.5-5.0) g/dL - Progress Progress: improved, re-examined Air Movement: good Progress Note: 02/20/21 22:44 Chest x-ray shows no acute cardiopulmonary process. Counseled pt/family regarding: lab results, diagnosis, need for follow-up, rad results - Departure Departure Disposition: Extended Care Facility Clinical Impression: Non-cardiac chest pain Condition: Stable Critical Care Time: No Referrals: MARCIN VALERA MD [Primary Care Provider] - Additional Instructions: Drink plenty of fluids. Take your medication as prescribed. Follow-up with your primary care doctor on 02/23/2021 for further management.
[2021-02-20 22:25] LABS: Absolute Neutrophil Ct (ANC) 3.08 (1.4-6.9); BASOPHIL % 0.5 % (0.0-0.4); Basophil (Absolute #) 0.03 (0-0.4); Eosinophil % 5.1 % (0.00-5.0); Hemoglobin 11.7 gm/dl (12.0-16.0); Lymphocyte (Absolute #) 1.88 (1.0-4.6); Lymphocytes % 31.7 % (24.0-44.0); Mean Cell Volume 95.1 fl (78-100); Mean Corpuscular Hemoglobin 30.1 pg (26-32); Mean Corpuscular Hgb Concent. 31.6 g/dl (32-36); Mean Platelet Volume 9.1 fl (7.5-11.0); Monocyte (Absolute #) 0.64 (0.0-1.3); Monocytes % 10.8 % (0.0-12.0); Neutrophil % 51.9 % (36.0-66.0); Platelet Count 270 K/mm3 (150-450); Red Blood Count 3.89 M/mm3 (4.1-5.4); Red Cell Distribution Width 13.8 % (11.5-14.0); White Blood Count 5.9 K/mm3 (4.0-10.5)
[2021-02-20 22:48] LABS: ALBUMIN 4.2 g/dL (3.5-5.0); ANION GAP 12.1 MEQ/L (5-15); BILIRUBIN,TOTAL 0.4 mg/dL (0.2-1.3); Creatinine 1 1.28 mg/dL (0.52-1.04); EST GLOMERULAR FILTRATION RATE 46.4 ML/MIN; NT PRO BNP 31.4 pg/mL (0-900); Potassium 3.9 mmol/L (3.5-5.1); Total Protein 7.1 g/dL (6.3-8.2)
[2021-02-20 23:22] LABS: INR 0.93 (0.8-3.0)
[2021-02-21] MEDS ORDERED: NORCO 5/325 MG PO ONE (00:26)
[2021-02-21] MEDS ORDERED: GI COCKTAIL 45 ML (Maalox/Lidocaine) PO ONE (00:28)
[2021-02-21] MEDS ORDERED: NORCO 5/325 MG ONE (00:30)
[2021-02-21] MEDS ORDERED: MAALOX ES 30 ML UNIT DOSE ONE (00:33)
[2021-02-21] MEDS ORDERED: XYLOCAINE HCl Viscous ONE (00:33)
[2021-02-21 00:47] VITALS: BP 90/51; PULSE 78; O2SAT 98
--- NOTE | 2021-02-21 05:58 | XRAY ---
Indication: Chest pain. Comparison: January 21, 2021. Portable apical lordotic chest remains clear. Heart not enlarged. Bony thorax intact. No new/acute findings.
== END 2021-02-21 00:47 | disposition home or self-care (01) ==
LOC: ED 22:04
DX: R07.89 Other chest pain (principal)
CPT/HCPCS: 36000; 36415; 71045; 80053; 83880; 84484; 85025; 85379; 85610; 93005; 93041; 94760; 99284; A9270-GY

== ENCOUNTER 2023-01-26 07:16 | Day surgery (SDC) | payer OTHER, MEDICARE ==
[2023-01-26] MEDS ORDERED: BUPIVACAINE 0.5% VIAL IJ ONE (07:17)
[2023-01-26] MEDS ORDERED: LIDOCAINE HCL 1% 50 MG/5 ML VL PF IJ ONE (07:17)
[2023-01-26] MEDS ORDERED: Depo-Medrol 40 MG/ML IM ONE (07:17)
[2023-01-26] MEDS ORDERED: DIPRIVAN 200 MG/20 ML IV ONE (08:53)
--- NOTE | 2023-01-26 10:16 | XRAY ---
Indication: Right L4-S1 RFA. Intraoperative fluoroscopy provided for 22 seconds. 4 digital spot image submitted for interpretation demonstrates posterior needle tips projecting over the expected right L4-S1 nerve roots. Correlate with intraoperative findings/report.
--- NOTE | 2023-01-26 10:54 | XRAY ---
22 seconds of fluoroscopy was used in surgery for a right L4-S1 RFA.
[2023-01-26] MEDS ORDERED: Lactated Ringers 1,000 ML IV ONE (13:34)
== END 2023-01-26 09:30 | disposition home or self-care (01) ==
LOC: SDC-PAIN 07:16
PROVIDERS: ATTEND Psychiatry & Neurology Pain Medicine
DX: M47.816 Spondylosis without myelopathy or radiculopathy, lumbar region (principal); Z79.899 Other long term (current) drug therapy
CPT/HCPCS: 64635; 64636; 72100; 77002; J1030; J2001; J2704

== ENCOUNTER 2023-02-02 09:46 | Day surgery (SDC) | payer OTHER, MEDICARE ==
[2023-02-02] MEDS ORDERED: Depo-Medrol 40 MG/ML IM ONE (09:47)
[2023-02-02] MEDS ORDERED: LIDOCAINE HCL 1% 50 MG/5 ML VL PF IJ ONE ×2 (09:47)
[2023-02-02] MEDS ORDERED: BUPIVACAINE 0.5% VIAL IJ ONE (09:47)
[2023-02-02] MEDS ORDERED: DIPRIVAN 200 MG/20 ML IV ONE (11:51)
[2023-02-02] MEDS ORDERED: Lactated Ringers 1,000 ML IV ONE (12:46)
--- NOTE | 2023-02-02 13:06 | XRAY ---
Indication: Left L4-S1 RFA. Intraoperative fluoroscopy was provided for 21 seconds. 4 digital spot images submitted for interpretation demonstrates posterior needle tips projecting over the expected left L4-S1 nerve roots. Correlate with intraoperative findings/report.
--- NOTE | 2023-02-02 14:07 | XRAY ---
21 seconds of fluoroscopy was used in surgery for a left L4-S1 RFA.
== END 2023-02-02 12:19 | disposition home or self-care (01) ==
LOC: SDC-PAIN 09:46
PROVIDERS: ATTEND Psychiatry & Neurology Pain Medicine
DX: M47.817 Spondylosis without myelopathy or radiculopathy, lumbosacral region (principal); Z79.899 Other long term (current) drug therapy
CPT/HCPCS: 64635; 64636; 72100; 77002; J1030; J2001; J2704

== ENCOUNTER 2023-03-02 18:15 | Emergency (ER) | payer OTHER, MEDICARE ==
[2023-03-02] MEDS ORDERED: Hydromorphone 1 mg/ml Injection IM ONE (18:53)
[2023-03-02 18:54] VITALS: RESP 22; TEMP 97.3
[2023-03-02] MEDS ORDERED: Hydromorphone 1 mg/ml Injection ONE (18:56)
--- NOTE | 2023-03-02 18:58 | ERPHSYRPT ---
- History of Present Illness Time Seen by Provider: 03/02/23 18:55 Source: patient Exam Limitations: no limitations Physician History: Patient is a 57-year-old white female who suffered a fall when she tripped at home landing on an extended right wrist she complains of pain in the radial aspect of the wrist. There is some deformity noted. She is on pain management from Dr. Owens however this seems genuinely to be truly painful and we will administer Dilaudid prior to x-ray. Occurred: just prior to arrival Method of Injury: fell Quality: aching, throbbing Severity of Pain-Max: moderate Severity of Pain-Current: moderate Extremities Pain Location: wrist: right Modifying Factors: Improves With: movement Associated Symptoms: none Allergies/Adverse Reactions: No Known Drug Allergies Allergy (Verified 01/21/21 12:01) Home Medications: ARIPiprazole [Abilify Mycite] 5 mg PO HS 07/31/20 [History] Atorvastatin Calcium [Lipitor] 20 mg PO HS 07/31/20 [History] Baclofen 10 mg PO TID 07/31/20 [History] Fenofibrate 160 mg PO HS 07/31/20 [History] Gabapentin 600 mg PO QID 07/31/20 [History] Hydrocodone/Acetaminophen [Hydrocodone-Acetamin 7.5-325] 1 tab PO TID PRN 07/31/20 [History] Lisinopril 20 mg [Zestril 20 MG] 20 mg PO HS 07/31/20 [History] Topiramate [Topiramate ER] 50 mg PO BID 07/31/20 [History] Chlorthalidone 1 tab PO DAILY 01/21/21 [History] Milnacipran HCl [Savella] 1 tab PO BID 01/21/21 [History] Hx Tetanus, Diphtheria Vaccination/Date Given: Yes Hx Influenza Vaccination/Date Given: No Hx Pneumococcal Vaccination/Date Given: No Travel Risk - Vaccine Status Have you recieved a Covid-19 vaccination: Yes Home Health Care Case Manager: [employer] Constitutional: No Fever, No Chills Eyes: No Symptoms Ears, Nose, & Throat: No Symptoms Respiratory: No Cough, No Dyspnea Cardiac: No Chest Pain, No Edema, No Syncope Abdominal/Gastrointestinal: No Abdominal Pain, No Nausea, No Vomiting, No Diarrhea Genitourinary Symptoms: No Dysuria Musculoskeletal: No Back Pain, No Neck Pain Skin: No Rash Neurological: No Dizziness, No Focal Weakness, No Sensory Changes Psychological: No Symptoms Endocrine: No Symptoms All Other Systems: Reviewed and Negative - Past Medical History Pertinent Past Medical History: Yes Neurological History: Migraines ENT History: No Pertinent History Cardiac History: High Cholesterol, Hypertension Respiratory History: No Pertinent History Endocrine Medical History: No Pertinent History Musculoskeletal History: Fibromyalgia GI Medical History: No Pertinent History History: No Pertinent History Psycho-Social History: Anxiety, Depression Female Reproductive Disorders: No Pertinent History - Past Surgical History Past Surgical History: Yes Neuro Surgical History: No Pertinent History Cardiac: No Pertinent History Respiratory: No Pertinent History Gastrointestinal: No Pertinent History Genitourinary: No Pertinent History Musculoskeletal: Joint Replacement, Other Female Surgical History: Hysterectomy Other Surgical History: hysterectomy. back. bilat knee - Social History Smoking Status: Never smoker Exposure to second hand smoke: No Drug Use: none Patient Lives Alone: No - Nursing Vital Signs Nursing Vital Signs: Initial Vital Signs Temperature 97.3 F 03/02/23 18:50 Pulse Rate 76 03/02/23 18:50 Respiratory Rate 22 03/02/23 18:50 Blood Pressure 106/56 03/02/23 18:50 O2 Sat by Pulse Oximetry 98 03/02/23 18:50 Pain Scale Pain Intensity 8 - Physical Exam General Appearance: moderate distress Eyes, Ears, Nose, Throat Exam: normal ENT inspection Neck Exam: supple, full range of motion Cardiovascular/Respiratory Exam: no respiratory distress, No rib tenderness Back Exam: normal inspection, normal range of motion, No vertebral tenderness Shoulder Exam: normal inspection, non-tender Elbow/Forearm Exam: normal inspection, non-tender Wrist Exam: asymmetry (Examination of the right wrist shows deformity of the radial aspect of the wrist the fingers show full range of motion with neurovascular tendon intact cap refill is brisk), bone tenderness, deformity, pain Hand Exam: non-tender, no evidence of injury Neuro/Tendon Exam: normal sensation, normal motor functions, normal tendon functions Mental Status Exam: alert, oriented x 3 Skin Exam: normal color, warm, dry SpO2 Interpretation: normal SpO2: 100 O2 Delivery: Room Air - Radiology Exams Right Wrist X-ray Interpretation: Interpreted by me (Comminuted fracture dislocation of the distal right radius.) Ordered Tests: Active Orders 24 hr Category Date Time Status Splint STAT Care 03/02/23 19:15 Ordered WRIST (MIN 3 VIEWS) Stat Exams 03/02/23 19:13 Taken Medication Summary Discontinued Medications Generic Name Dose Route Start Last Admin Trade Name Chari PRN Reason Stop Dose Admin Hydromorphone HCl 1 mg 03/02/23 18:53 03/02/23 18:57 Hydromorphone 1 Mg/1ml Inj IM 03/02/23 18:54 1 mg STAT ONE Administration Hydromorphone HCl Confirm 03/02/23 18:56 Hydromorphone 1 Mg/1ml Inj Administered 03/02/23 18:57 Dose 1 mg .ROUTE .STK-MED ONE - Progress Progress: improved Medical Desision Making - Diagnostic Testing Radiological Interpretation: Interpreted by me, Reviewed by me - Risk of complications Minimal Risk: Minimal risk of morbidity - Departure Departure Disposition: Home Clinical Impression: Closed fracture of right wrist Condition: Stable Critical Care Time: No Referrals: MARCIN VALERA MD [Primary Care Provider] - Follow up/PCP as directed
[2023-03-02 19:22] VITALS: BP 105/50; PULSE 69; O2SAT 98
--- NOTE | 2023-03-03 08:48 | XRAY ---
Indication: Pain following fall. Comparison: None 3 view right wrist demonstrates comminuted displaced fracture distal metadiaphysis radius with bayonet apposition/alignment and soft tissue swelling. Additional tiny displaced ulnar styloid fracture. No other bony, articular, or soft tissue abnormalities.
== END 2023-03-02 19:52 | disposition home or self-care (01) ==
LOC: ED 18:15
DX: S52.591A Other fractures of lower end of right radius, initial encounter for closed fracture (principal); W01.0XXA Fall on same level from slipping, tripping and stumbling without subsequent striking against object, initial encounter; E78.5 Hyperlipidemia, unspecified; I10 Essential (primary) hypertension; Z79.891 Long term (current) use of opiate analgesic; Z79.899 Other long term (current) drug therapy
CPT/HCPCS: 29125; 73110; 96372; 99283; J1170